=== PATIENT | male | born 1945 | race Caucasian/White ===

== ENCOUNTER 2020-06-21 11:11 | Observation (INO) | payer MEDICARE, MEDICAID, SELFPAY ==
[2020-06-21] VITALS (16 sets, daily range): BP systolic 82–126; BP diastolic 43–61; PULSE 53–105; RESP 15–24; TEMP 36.6–36.8; O2SAT 92–99; BMI 34.9
--- NOTE | 2020-06-21 11:25 | CT_ITS ---
WS: [id number] CT CERVICAL TRAUMA TECHNIQUE: Noncontrast CT of the cervical spine with coronal and sagittal reformatted images. CLINICAL INFORMATION: fall COMPARISON: None. DLP: 804.[address] scans at [facility] use at least one of these dose optimization techniques: automat ed exposure control; mA and/or kV adjustment per patient size (includes targeted exams where dose is matched to clinical indication); or iterative reconstruction. FINDINGS: Straightening of the normal cervical lordosis. Mild spondylitic changes. Normal craniocervical juncti on. Normal C1-C2 articulation. Dens is normal in appearance. Normal occipital condyles. No high-grade spinal canal narrowing. Normal C1 ring. No evidence of acute fracture or dislocation. Normal prevertebral soft tissues. Mastoids air cells are well aerated. CT/CT cervical spin wo con* [id number] IMPRESSION: No evidence of acute fracture or dislocation.
--- NOTE | 2020-06-21 11:25 | CT_ITS ---
WS: [id number] CT HEAD TECHNIQUE: Noncontrast CT of the head obtained from the skullbase to the vertex. CLINICAL INFORMATION: syncope, head injury COMPARISON: None. DLP: 778.[address] scans at [facility] use at least one of these dose optimization techniques: automat ed exposure control; mA and/or kV adjustment per patient size (includes targeted exams where dose is matched to clinical indication); or iterative reconstruction. FINDINGS: No evidence of intracranial hemorrhage or mass effect. Ventricular system and basal cisterns are dorsey nt. Mild small vessel changes with moderate parenchymal volume loss. 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 No extra-axial fluid collectio ns. No evidence of mass or mass effect. Paranasal sinuses and mastoid air cells are well aerated. .Normal visualized soft tissues. CT/CT head wo con* [id number] IMPRESSION: 1. No evidence of intracranial hemorrhage or mass effect. 2. Mild small vessel changes with moderate parenchymal volume loss. 3. 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 4. No acute intracranial findings.
--- NOTE | 2020-06-21 11:25 | CT_ITS ---
WS: [id number] CT CHEST, ABDOMEN, AND PELVIS TECHNIQUE: Noncontrast CT of the chest, abdomen, and pelvis with coronal and sagittal reformatted luana ges. CLINICAL INFORMATION: fall, left rib pain, left hip pain, left abdominal pain COMPARISON: None. DLP: 2131.[address] scans at [facility] use at least one of these dose optimization techniques: automat ed exposure control; mA and/or kV adjustment per patient size (includes targeted exams where dose is matched to clinical indication); or iterative reconstruction. CT CHEST: Moderate chronic emphysematous changes. Hazy ground glass infiltrates throughout the right lung. Left lung is well aerated. Nondisplaced left lateral seventh, Eighth, and ninth rib fractures. No evidence of mediastinal hematoma. No evidence of acute thoracic aortic injury. Aortic calcificatio n. CT ABDOMEN AND PELVIS: Noncontrast liver is normal. Normal GE junction. Noncontrast spleen is normal. Fatty atrophy of the p ancreas. Adrenal glands are normal. No hydronephrosis in either kidney. Prior right nephrectomy. Mult iple left renal cysts. Normal caliber abdominal aorta. Aortic calcification. Sigmoid diverticulosis. No evidence of acute diverticulitis. No evidence of small or large bowel obstruction. Tiny fat-containing umbilical hernia. No periaortic retroperitoneal lymphadenopathy. No inguinal lymphadenopathy. No free fluid in the pelvis. The bony p maddie and hips are normal in appearance. CT/CT chest abd pel wo con IMPRESSION: 1. Nondisplaced left lateral seventh,eighth and ninth rib fractures. 2. Patchy hazy infiltrates throughout the right lung peripherally. Left lung i s well aerated. No pneumothorax. 3. No evidence of acute aortic injury or mediastinal hematoma. 4. No evidence of acute solid organ injury in the abdomen or pelvis. No free f luid in the abdomen or pelvis. 5. Sigmoid diverticulosis. 6. Hips are normal in appearance. 7. No acute abdominal or pelvic findings. Notified Jamie Anand [place] [facility] [place] 06/21/2020 12:21 PM.
--- NOTE | 2020-06-21 11:25 | CT_ITS ---
WS: [id number] CT FACIAL BONES TECHNIQUE: Noncontrast facial bones with coronal and sagittal reformatted images. CLINICAL INFORMATION: fall COMPARISON: None. DLP: 754.[address] scans at [facility] use at least one of these dose optimization techniques: automat ed exposure control; mA and/or kV adjustment per patient size (includes targeted exams where dose is matched to clinical indication); or iterative reconstruction. FINDINGS: Paranasal sinuses are well aerated. Partially visualized mastoid air cells are well aerated. Lateral orbits are normal in appearance. Inferior orbits are normal in appearance. Normal lamina papyracea. A nterior nasal bones are normal. Normal sphenoid wings. Normal pterygoid plates. Normal mandible. No evidence of mandibular fracture dislocation. Mild mucosa l thickening right maxillary sinus. CT/CT facial bones wo con* [id number] IMPRESSION: 1. No acute facial fractures. 2. Normal right orbit 3. Mild mucosal thickening right maxillary sinus.
--- NOTE | 2020-06-21 11:28 | ECG_ITS ---
[facility] Test Date: 2020-06-21 Pat Name: Carter Cormier Department: Room: Gender: Male [employer] [facility]: : 1945 Requested By: Jamie Anand I Order Number: [id number] Zelalem MD: Brendon Ramirez M.D. Measurements Intervals Lyman Rate: 62 P: 58 IA: 197 QRS: -16 QRSD: 154 T: 225 QT: 465 QTc: 472 Interpretive Statements SINUS RHYTHM LEFT BUNDLE BRANCH BLOCK [120+ ms QRS DURATION, 80+ ms Q/S IN V1/V2, 85+ ms R IN I/aVL/V5/V6] No previous ECG available for comparison Electronically Signed On 06-21-2020 17:18:28 POND SUPERVISOR by Brendon Ramirez M.D. [id number]
--- NOTE | 2020-06-21 11:29 | ED_ITS ---
HPI - Syncope General: Chief Complaint: Syncope Stated Complaint: FALL/ WEAKNESS Time Seen by Provider: 06/21/20 11:12 Source: patient and EMS Mode of arrival: EMS Limitations: no limitations History of Present Illness: HPI narrative: Patient is a 75-year-old male with a history of hypertension, right nephrectomy for kidney cancer. He denies any prior history of NE, congestive heart failure, CVA. He states that 3 times last night he lost consciousness and fell. He does have abrasion in his right infraorbital region. Complains of pain on the left side of his body in his left lower chest wall, left side of the abdomen, and left hip. He complains of generalized weakness and called for an ambulance this morning. In the ambulance he was noted to be hypotensive and was brought here for evaluation MD complaint: loss of consciousness Onset (ago): hour(s) (12) Prodromal symptoms: none and headache Witnessed: No Context: getting out of bed Injuries sustained associated with event: face, abdomen and LLE Associated symptoms: Reports abdominal pain and headache(s); Deny chest pain, fever(s), lightheadedness, nausea, short of breath, vertigo or weakness Treatments prior to arrival: IV fluids Review of Systems General: Reports: 10 or more systems reviewed and unremarkable except in HPI and below Const: Denies: fever(s) Eyes: Denies: change in vision or blurry vision ENMT: Denies: throat pain, enlarged tonsils, odynophagia, hoarseness, mouth pain or swelling of lips/tongue Card: Denies: chest pain or lightheadedness Resp: Denies: dyspnea, productive cough or non-productive cough GI: Reports: abdominal pain; Denies: nausea : Denies: flank pain, dysuria, urinary frequency, urinary urgency or urinary hesitancy Musc: Denies: neck pain, back pain or extremity swelling Skin/Breast: Denies: rash, pruritus or erythema Neuro: Reports: headache(s); Denies: vertigo Endo: Denies: polyuria, polydipsia or tired all the time [facility] ED PFSH: Medical History (Updated 06/21/20 @ 19:28 by Jamie Anand MD, [facility] [place]) Asthma BPH (benign prostatic hyperplasia) CAD (coronary artery disease) GERD (gastroesophageal reflux disease) HTN (hypertension) Renal cell cancer Surgical History (Updated 06/21/20 @ 18:24 by Amilcar Andrea MD) History of nephrectomy Stented coronary artery Family History Other No significant family history Social History Smoking and tobacco status: former smoker Quit status (tobacco): has quit using tobacco Year quit tobacco: 1976 Alcohol intake: never Substance/Drug Use: never Lives independently: Yes Household members: none Housing: Other Details: Brother Johnnie Cormeir lives in the same apartment buildings. Marital status: Physical Exam Const: COMMON NORMALS: no acute distress, average body habitus, patient oriented x3, no limitations, healthy appearing, alert and well nourished HENMT: COMMON NORMALS: normocephalic and moist oral mucous membranes HEAD & SCALP: normocephalic FACE & SINUS: face symmetric and ecchymosis (Right infraorbital region) Eye: COMMON NORMALS: Equal, round and reactive pupils present, EOMs intact bilaterally, conjunctivae normal and no scleral icterus CONJUNCTIVA: Yes conjunctivae normal PUPIL: Yes Equal, round and reactive pupils present Neck/C-Spine: COMMON NORMALS: full ROM, supple, no meningeal signs, no JVD and No carotid bruits Chest: COMMONS NORMALS: normal inspection of the chest CHEST: Yes tenderness (Left lower chest wall) Resp: COMMON NORMALS: normal respiratory effort, No retractions, No use of accessory muscles, clear to auscultation bilaterally and percussion normal AUSCULTATION: clear to auscultation bilaterally PERCUSSION: percussion normal Cardio: COMMON NORMALS: no JVD, regular rate, regular rhythm, S1 normal heart sound present, S2 normal heart sound present, No gallops present (Cardio), No clicks present (Cardio), No murmurs present (Cardio), No rub (Cardio) and Peripheral pulses 2+ throughout RATE: regular rate RHYTHM: regular rhythm HEART SOUNDS: S1 normal heart sound present and S2 normal heart sound present PERIPHERAL PULSES: Peripheral pulses 2+ throughout GI: COMMON NORMALS: Normal to inspection, nondistended, normoactive bowel sounds present, Soft to palpation, No hepatosplenomegaly present, no masses and no bruits PALPATION: Yes Soft to palpation, Yes Tenderness to palpation present (GI) Details: LLQ and LUQ, No Guarding due to palpation present (GI), No Rigid due to palpation and Yes No hepatosplenomegaly present Extremity: COMMON NORMALS: normal to inspection, full ROM, capillary refill normal, no calf tenderness and no pedal edema LEFT LOWER EXTREMITY: Yes hip joint Left hip: Yes palpation (tender to palpation) Neuro: COMMON NORMALS: patient oriented x3 SENSORIUM/ORIENTATION: Yes alert MENINGEAL SIGNS: Yes no meningeal signs Skin: COMMON NORMALS: no rashes or lesions noted, no wounds, turgor normal, no jaundice, no petechiae and no mottling GENERAL SKIN EXAM: no rashes or lesions noted and turgor normal Course ED course: 75 year old male who presented to the ED after 3 syncopal episodes last night. Evaluation showed he sustained multiple rib fractures. He was orthostatic on initial evaluation and after 2 liters of normal saline was still orthostatic. Labs showed elevated troponin but a flat 2 hour delta. He has had a nephrectomy and his creatinine was elevated. Consultations: Consultation #1: Discussed the patient with Dr. Andrea, hospitalist and he kindly accepted the patient to his service. Time: 17:07 Vital Signs: Vital signs: Vital Signs Temperature 98.3 F 06/21/20 11:18 Pulse Rate 68 06/21/20 18:15 Respiratory Rate 18 06/21/20 18:15 Blood Pressure 117/56 06/21/20 18:15 Pulse Oximetry 97 06/21/20 18:15 MDM - Syncope MDM Narrative: Medical decision making narrative: Patient with 3 syncopal episodes last night. He sustained rib fractures, and was orthostatic, which did not resolve following fluid hydration. He is admitted for further evaluation and management. Lab Data: Labs: Lab Results 06/21/20 06/21/20 06/21/20 Range/Units 12:37 12:37 12:43 WBC 7.3 (4.0-10.0) 10^3/ uL RBC 4.16 (4.1-5.3) 10^6/u L Hgb 13.1 (11.7-16.6) g/dL Hct 39.0 L (42.0-52.0) % MCV 93.8 (80-94) fL MCH 31.5 (28.0-34.0) pg MCHC 33.6 (30.0-36.0) g/dL RDW 12.6 (12.1-15.1) % Plt Count 145 (130-400) 10^3/c mm MPV 9.4 (7.4-10.4) fL Neut % (Auto) 77.6 % Lymph % (Auto) 11.5 % Darke % (Auto) 8.8 % Eos % (Auto) 1.4 % Baso % (Auto) 0.3 % Neut # (Auto) 5.67 (1.8-7.7) 10^3/u L Lymph # (Auto) 0.8 (0.8-4.8) 10^3/u L Darke # (Auto) 0.6 (0.2-0.9) 10^3/u L Eos # (Auto) 0.1 (0.0-0.8) 10^3/u L Baso # (Auto) 0.0 (0.0-0.1) 10^3/u L Nucleated RBC % (a uto) 0 % Nucleated RBCs # 0.0 /100WBC PT (12.1-14.9) SECO NDS INR (0.8-1.2) Sodium (136-145) mmol/L Potassium (3.5-5.1) mmol/L Chloride (98-107) mmol/L Carbon Dioxide (22-29) mmol/L Anion Gap (5-19) BUN (8-23) mg/dL Creatinine (0.7-1.2) mg/dL GFR Calculation Glucose (65-115) mg/dL Calculated Osmolal ity (285-295) mOsm/k g Lactate (0.5-2.2) mmol/L Calcium (8.5-10.5) mg/dL Total Bilirubin (0.15-1.2) mg/dL AST (0-40) U/L ALT (0-41) U/L Alkaline Phosphata se (40-130) IU/L Troponin T Baselin e (0-15) ng/L Troponin T 120 Min [place] Delta Troponin T C-Reactive Protein (0.0-4.9) mg/L NT-Pro-B Natriuret Pep (0-450) pg/mL Total Protein (6.6-8.7) g/dL Albumin (3.5-5.2) g/dL Globulin (1.3-4.6) g/dL Procalcitonin (0-0.5) ng/mL Urine Color Dark yellow (Yellow) Urine Appearance Cloudy (CLEAR) Urine pH 5 (5-7) Ur Specific Gravit y 1.025 (1.005-1.030) Urine Protein Trace (Negative) Urine Glucose (UA) Norm (Normal) Urine Ketones Negative (Negative) Urine Blood Neg (Negative) Urine Nitrate Negative (Negative) Urine Bilirubin 1+ H (Negative) Urine Urobilinogen 4 H (Negative) mg/dL Ur Leukocyte Rossi ase Negative (Negative) Urine RBC None (0-2) /hpf Urine WBC 0-4 H (0-5) /hpf Ur Squamous Epith Cells 25-40 H (0-5) /hpf Amorphous Sediment Not Reportable Urine Bacteria 2+ H (NONE) /hpf Urine Opiates Scre en Negative (Negative) ng/mL Ur Barbiturates Sc reen Negative (Negative) ng/mL Ur Phencyclidine S crn Negative (Negative) ng/mL Ur Amphetamines Sc reen Negative (Negative) ng/mL U Benzodiazepines Scrn Negative (Negative) ng/mL Urine Cocaine Scre en Negative (Negative) ng/mL U Marijuana (THC) Screen Negative (Negative) ng/mL 06/21/20 06/21/20 06/21/20 Range/Units 12:43 12:43 12:43 WBC (4.0-10.0) 10^3/ uL RBC (4.1-5.3) 10^6/u L Hgb (11.7-16.6) g/dL Hct (42.0-52.0) % MCV (80-94) fL MCH (28.0-34.0) pg MCHC (30.0-36.0) g/dL RDW (12.1-15.1) % Plt Count (130-400) 10^3/c mm MPV (7.4-10.4) fL Neut % (Auto) % Lymph % (Auto) % Darke % (Auto) % Eos % (Auto) % Baso % (Auto) % Neut # (Auto) (1.8-7.7) 10^3/u L Lymph # (Auto) (0.8-4.8) 10^3/u L Darke # (Auto) (0.2-0.9) 10^3/u L Eos # (Auto) (0.0-0.8) 10^3/u L Baso # (Auto) (0.0-0.1) 10^3/u L Nucleated RBC % (a uto) % Nucleated RBCs # /100WBC PT 14.60 (12.1-14.9) SECO NDS INR 1.10 (0.8-1.2) Sodium 139 (136-145) mmol/L Potassium 3.1 L (3.5-5.1) mmol/L Chloride 98 (98-107) mmol/L Carbon Dioxide 24 (22-29) mmol/L Anion Gap 20.1 H (5-19) BUN 36 H (8-23) mg/dL Creatinine 2.5 H (0.7-1.2) mg/dL GFR Calculation Not Reportable Glucose 154 H (65-115) mg/dL Calculated Osmolal ity 299 H (285-295) mOsm/k g Lactate 2.3 H (0.5-2.2) mmol/L Calcium 9.0 (8.5-10.5) mg/dL Total Bilirubin 0.9 (0.15-1.2) mg/dL AST 14 (0-40) U/L ALT 9 (0-41) U/L Alkaline Phosphata se 99 (40-130) IU/L Troponin T Baselin e (0-15) ng/L Troponin T 120 Min [place] Delta Troponin T C-Reactive Protein 35.0 H (0.0-4.9) mg/L NT-Pro-B Natriuret Pep 211 (0-450) pg/mL Total Protein 5.7 L (6.6-8.7) g/dL Albumin 3.2 L (3.5-5.2) g/dL Globulin 2.5 (1.3-4.6) g/dL Procalcitonin 0.32 (0-0.5) ng/mL Urine Color (Yellow) Urine Appearance (CLEAR) Urine pH (5-7) Ur Specific Gravit y (1.005-1.030) Urine Protein (Negative) Urine Glucose (UA) (Normal) Urine Ketones (Negative) Urine Blood (Negative) Urine Nitrate (Negative) Urine Bilirubin (Negative) Urine Urobilinogen (Negative) mg/dL Ur Leukocyte Rossi ase (Negative) Urine RBC (0-2) /hpf Urine WBC (0-5) /hpf Ur Squamous Epith Cells (0-5) /hpf Amorphous Sediment Urine Bacteria (NONE) /hpf Urine Opiates Scre en (Negative) ng/mL Ur Barbiturates Sc reen (Negative) ng/mL Ur Phencyclidine S crn (Negative) ng/mL Ur Amphetamines Sc reen (Negative) ng/mL U Benzodiazepines Scrn (Negative) ng/mL Urine Cocaine Scre en (Negative) ng/mL U Marijuana (THC) Screen (Negative) ng/mL 06/21/20 06/21/20 06/21/20 Range/Units 12:43 15:28 16:15 WBC (4.0-10.0) 10^3/ uL RBC (4.1-5.3) 10^6/u L Hgb (11.7-16.6) g/dL Hct (42.0-52.0) % MCV (80-94) fL MCH (28.0-34.0) pg MCHC (30.0-36.0) g/dL RDW (12.1-15.1) % Plt Count (130-400) 10^3/c mm MPV (7.4-10.4) fL Neut % (Auto) % Lymph % (Auto) % Darke % (Auto) % Eos % (Auto) % Baso % (Auto) % Neut # (Auto) (1.8-7.7) 10^3/u L Lymph # (Auto) (0.8-4.8) 10^3/u L Darke # (Auto) (0.2-0.9) 10^3/u L Eos # (Auto) (0.0-0.8) 10^3/u L Baso # (Auto) (0.0-0.1) 10^3/u L Nucleated RBC % (a uto) % Nucleated RBCs # /100WBC PT (12.1-14.9) SECO NDS INR (0.8-1.2) Sodium (136-145) mmol/L Potassium (3.5-5.1) mmol/L Chloride (98-107) mmol/L Carbon Dioxide (22-29) mmol/L Anion Gap (5-19) BUN (8-23) mg/dL Creatinine (0.7-1.2) mg/dL GFR Calculation Glucose (65-115) mg/dL Calculated Osmolal ity (285-295) mOsm/k g Lactate (0.5-2.2) mmol/L Calcium (8.5-10.5) mg/dL Total Bilirubin (0.15-1.2) mg/dL AST (0-40) U/L ALT (0-41) U/L Alkaline Phosphata se (40-130) IU/L Troponin T Baselin e 45 H (0-15) ng/L Troponin T 120 Min [place] Cancelled 43.86 H Delta Troponin T Cancelled -1.14 L C-Reactive Protein (0.0-4.9) mg/L NT-Pro-B Natriuret Pep (0-450) pg/mL Total Protein (6.6-8.7) g/dL Albumin (3.5-5.2) g/dL Globulin (1.3-4.6) g/dL Procalcitonin (0-0.5) ng/mL Urine Color (Yellow) Urine Appearance (CLEAR) Urine pH (5-7) Ur Specific Gravit y (1.005-1.030) Urine Protein (Negative) Urine Glucose (UA) (Normal) Urine Ketones (Negative) Urine Blood (Negative) Urine Nitrate (Negative) Urine Bilirubin (Negative) Urine Urobilinogen (Negative) mg/dL Ur Leukocyte Rossi ase (Negative) Urine RBC (0-2) /hpf Urine WBC (0-5) /hpf Ur Squamous Epith Cells (0-5) /hpf Amorphous Sediment Urine Bacteria (NONE) /hpf Urine Opiates Scre en (Negative) ng/mL Ur Barbiturates Sc reen (Negative) ng/mL Ur Phencyclidine S crn (Negative) ng/mL Ur Amphetamines Sc reen (Negative) ng/mL U Benzodiazepines Scrn (Negative) ng/mL Urine Cocaine Scre en (Negative) ng/mL U Marijuana (THC) Screen (Negative) ng/mL Imaging Data^: Other CT: Radiologist's impression: [address] [place] [address] CT Scan Report Signed Patient: Carter Cormier #: [id number] : 1945cct#:[id number] Age/Sex: 75 / MADM Date: 06/21/20 Loc: ERRoom/Bed: Attending Dr: Ordering Provider/Ordering MD: Jamie Anand MD, [facility] [place] Date of Service: 06/21/20 Procedure(s): CT cervical spin wo con* [id number] Accession Number(s): [id number] Report Number: [id number] WS: [id number] CT CERVICAL TRAUMA TECHNIQUE: Noncontrast CT of the cervical spine with coronal and sagittal reformatted images. CLINICAL INFORMATION: fall COMPARISON: None. DLP: 804.[address] scans at [facility] use at least one of these dose optimization techniques: automated exposure control; mA and/or kV adjustment per patient size (includes targeted exams where dose is matched to clinical indication); or iterative reconstruction. FINDINGS: Straightening of the normal cervical lordosis. Mild spondylitic changes. Normal craniocervical junction. Normal C1-C2 articulation. Dens is normal in appearance. Normal occipital condyles. No high-grade spinal canal narrowing. Normal C1 ring. No evidence of acute fracture or dislocation. Normal prevertebral soft tissues. Mastoids air cells are well aerated. CT/CT cervical spin wo con* [id number] IMPRESSION: No evidence of acute fracture or dislocation. Dictated By:Garret Cooper MD Signed By:Garret Cooper MDSigned Date/Time:06/21/20 1208 DD/ [address] [place] [address] CT Scan Report Signed Patient: Carter Cormier #: [id number] : 1945cct#:[id number] Age/Sex: 75 / MADM Date: 06/21/20 Loc: ERRoom/Bed: Attending Dr: Ordering Provider/Ordering MD: Jamie Anand MD, [facility] [place] Date of Service: 06/21/20 Procedure(s): CT facial bones wo con* [id number] Accession Number(s): [id number] Report Number: [id number] WS: [id number] CT FACIAL BONES TECHNIQUE: Noncontrast facial bones with coronal and sagittal reformatted images. CLINICAL INFORMATION: fall COMPARISON: None. DLP: 754.[address] scans at [facility] use at least one of these dose optimization techniques: automated exposure control; mA and/or kV adjustment per patient size (includes targeted exams where dose is matched to clinical indication); or iterative reconstruction. FINDINGS: Paranasal sinuses are well aerated. Partially visualized mastoid air cells are well aerated. Lateral orbits are normal in appearance. Inferior orbits are normal in appearance. Normal lamina papyracea. Anterior nasal bones are normal. Normal sphenoid wings. Normal pterygoid plates. Normal mandible. No evidence of mandibular fracture dislocation. Mild mucosal thickening right maxillary sinus. CT/CT facial bones wo con* [id number] IMPRESSION: 1. No acute facial fractures. 2. Normal right orbit 3. Mild mucosal thickening right maxillary sinus. Dictated By:Garret Cooper MD Signed By:Garret Cooper MDSigned Date/Time:06/21/20 1205 DD/ 1200 CT Chest: Radiologist's impression: [address] [address] [address] Scan Report Signed Patient: Carter Cormier #: [id number] : 3Acct#:[id number] Age/Sex: 75 / MADM Date: 06/21/20 Loc: ERRoom/Bed: Attending Dr: Ordering Provider/Ordering MD: Jamie Anand MD, [facility] [place] Date of Service: 06/21/20 Procedure(s): CT chest abd pel wo con Accession Number(s): [id number] Report Number: [id number] WS: [id number] CT CHEST, ABDOMEN, AND PELVIS TECHNIQUE: Noncontrast CT of the chest, abdomen, and pelvis with coronal and sagittal reformatted images. CLINICAL INFORMATION: fall, left rib pain, left hip pain, left abdominal pain COMPARISON: None. DLP: 2131.[address] scans at [facility] use at least one of these dose optimization techniques: automated exposure control; mA and/or kV adjustment per patient size (includes targeted exams where dose is matched to clinical indication); or iterative reconstruction. CT CHEST: Moderate chronic emphysematous changes. Hazy ground glass infiltrates throughout the right lung. Left lung is well aerated. Nondisplaced left lateral seventh, Eighth, and ninth rib fractures. No evidence of mediastinal hematoma. No evidence of acute thoracic aortic injury. Aortic calcification. CT ABDOMEN AND PELVIS: Noncontrast liver is normal. Normal GE junction. Noncontrast spleen is normal. Fatty atrophy of the pancreas. Adrenal glands are normal. No hydronephrosis in either kidney. Prior right nephrectomy. Multiple left renal cysts. Normal caliber abdominal aorta. Aortic calcification. Sigmoid diverticulosis. No evidence of acute diverticulitis. No evidence of small or large bowel obstruction. Tiny fat-containing umbilical hernia. No periaortic retroperitoneal lymphadenopathy. No inguinal lymphadenopathy. No free fluid in the pelvis. The bony pelvis and hips are normal in appearance. CT/CT chest abd pel wo con IMPRESSION: 1. Nondisplaced left lateral seventh,eighth and ninth rib fractures. 2. Patchy hazy infiltrates throughout the right lung peripherally. Left lung is well aerated. No pneumothorax. 3. No evidence of acute aortic injury or mediastinal hematoma. 4. No evidence of acute solid organ injury in the abdomen or pelvis. No free fluid in the abdomen or pelvis. 5. Sigmoid diverticulosis. 6. Hips are normal in appearance. 7. No acute abdominal or pelvic findings. Notified Jamie Anand MD [facility] [place] at 06/21/2020 12:21 PM. Dictated By:Garret Cooper MD Signed By:Garret Cooper MDSigned Date/Time:06/21/20 1222 DD/ 1208 CT Head: Radiologist's impression: [address] [place] [address] CT Scan Report Signed Patient: Carter Comriert #: [id number] : 3Acct#:[id number] Age/Sex: 75 / MADM Date: 06/21/20 Loc: ERRoom/Bed: Attending Dr: Ordering Provider/Ordering MD: Jamie Anand MD, [facility] [place] Date of Service: 06/21/20 Procedure(s): CT head wo con* [id number] Accession Number(s): [id number] Report Number: [id number] WS: [id number] CT HEAD TECHNIQUE: Noncontrast CT of the head obtained from the skullbase to the vertex. CLINICAL INFORMATION: syncope, head injury COMPARISON: None. DLP: 778.[address] scans at [facility] use at least one of these dose optimization techniques: automated exposure control; mA and/or kV adjustment per patient size (includes targeted exams where dose is matched to clinical indication); or iterative reconstruction. FINDINGS: No evidence of intracranial hemorrhage or mass effect. Ventricular system and basal cisterns are patent. Mild small vessel changes with moderate parenchymal volume loss. 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 No extra-axial fluid collections. No evidence of mass or mass effect. Paranasal sinuses and mastoid air cells are well aerated. .Normal visualized soft tissues. CT/CT head wo con* [id number] IMPRESSION: 1. No evidence of intracranial hemorrhage or mass effect. 2. Mild small vessel changes with moderate parenchymal volume loss. 3. Chronic encephalomalacia right parasagittal frontal lobe likely due to prior infarct or trauma. 4. No acute intracranial findings. Dictated By:Garret Cooper MD Signed By:Garret Cooper MDSigned Date/Time:06/21/20 1200 DD/ 1152 EKG Data^: EKG 1: Attestation: I personally reviewed and interpreted this EKG as follows: EKG interpretation date: 06/21/20 EKG interpretation time: 11:21 Prior EKG tracings: not available for review Interpretation: Sinus rhythm. Heart rate 62 bpm. Left bundle branch block. No ST changes. EKG 2: Attestation: I personally reviewed and interpreted this EKG as follows: EKG interpretation date: 06/21/20 EKG interpretation time: 13:49 Prior EKG tracings: available for review Interpretation: sinus bradycardia HR [address] changes EKG 3: Attestation: I personally reviewed and interpreted this EKG as follows: EKG interpretation date: 06/21/20 EKG interpretation time: 17:37 Prior EKG tracings: available for review Interpretation: sinus bradycardia HR [address] changes Discharge Plan Discharge Patient Disposition: Admitted As Inpatient Admit Provider: Amilcar Andrea Clinical Impression: Orthostatic hypotension, Syncope, Rib fractures, MAXIMILIANO (acute kidney injury), Troponin level elevated Condition: Stable Coding Level of Care Code ED Tool Turret Lathe Set Up Operator for Chg Fwd Exam Comprehensive
--- NOTE | 2020-06-21 12:28 | PC.NURSE ---
Attempted 2x to draw blood from venipuncture, unsuccessful. Unable to draw from pt IV. Pt attempting to give UA, orthos done.
--- NOTE | 2020-06-21 12:40 | PC.NURSE ---
Lab at bedside to draw blood
[2020-06-21 12:51] LABS: Blood Urine Neg (Negative); Glucose Urine UA Norm (Normal); Ketones Urine Negative (Negative); Nitrate Urine Negative (Negative); Protein Urine Trace (Negative); Specific Gravity, Urine 1.025 (1.005-1.030); Urine Appearance Cloudy (CLEAR); Urine Color Dark Yellow (Yellow); pH Urine 5 (5-7)
[2020-06-21 12:52] LABS: Add Urine Microscopic? YES; Bilirubin Urine 1+ (Negative); Leukocyte Esterase Urine Negative (Negative); Urobilinogen Urine 4 mg/dL (Negative)
[2020-06-21 12:53] LABS: Basophils % 0.3 %; Eosinophils # 0.1 10^3/uL (0.0-0.8); Eosinophils % 1.4 %; Hemoglobin 13.1 g/dL (11.7-16.6); Lymphocytes # 0.8 10^3/uL (0.8-4.8); Lymphocytes % 11.5 %; Mean Corpuscular HGB Conc 33.6 g/dL (30.0-36.0); Mean Corpuscular Hemoglobin 31.5 pg (28.0-34.0); Mean Corpuscular Volume 93.8 fL (80-94); Mean Platelet Volume 9.4 fL (7.4-10.4); Monocytes # 0.6 10^3/uL (0.2-0.9); Monocytes % 8.8 %; Neutrophils # 5.67 10^3/uL (1.8-7.7); Neutrophils % 77.6 %; Nucleated Red Blood Cells % 0 %; Platelet Count 145 10^3/cmm (130-400); Red Blood Count 4.16 10^6/uL (4.1-5.3); Red Cell Distribution Width 12.6 % (12.1-15.1); White Blood Count 7.3 10^3/uL (4.0-10.0)
[2020-06-21 12:59] LABS: Add Urine Culture? No; Bacteria Urine 2+ /hpf; Squamous Epithelial Cell Urine 25-40 /hpf (0-5); WBC Urine 0-4 /hpf (0-5)
[2020-06-21 13:01] LABS: Amphetamines Screen Urine Negative (Negative); Barbiturates Screen Urine Negative (Negative); Benzodiazepines Screen Urine Negative (Negative); Cocaine Screen Urine Negative (Negative); Opiate Screen Urine Negative (Negative); PCP Screen Urine Negative (Negative); THC Screen Urine Negative (Negative)
[2020-06-21 13:06] LABS: Lactate (Lactic Acid level) 2.3 mmol/L (0.5-2.2)
[2020-06-21 13:09] LABS: Troponin(5th) Baseline 45 ng/L (0-15)
[2020-06-21 13:17] LABS: NT Pro B Type Natriuretic Pept 211 pg/mL (0-450); Procalcitonin 0.32 ng/mL (0-0.5)
--- NOTE | 2020-06-21 13:28 | ECG_ITS ---
[facility] Test Date: 2020-06-21 Pat Name: Carter Cormier Department: Room: Gender: Male Spotter: : 1945 Requested By: Jamie Anand I Order Number: [id number] Zelalem MD: Brendon Ramirez M.D. Measurements Intervals [place] Rate: 57 P: 44 ID: [id number] QRS: -29 QRSD: 110 T: -15 QT: 415 QTc: 407 Interpretive Statements SINUS BRADYCARDIA BORDERLINE LEFT AXIS DEVIATION [QRS AXIS < -20] MODERATE T-WAVE ABNORMALITY, CONSIDER LATERAL ISCHEMIA [-0.1+ mV T WAVE IN I/aVL/V5/V6] Compared to ECG 06/21/2020 11:21:36 T-wave abnormality now present Possible ischemia now present Sinus rhythm no longer present Left bundle-branch block no longer present Electronically Signed On 06-21-2020 17:31:20 TAPER MACHINE by Brendon Ramirez M.D. [id number] f
[2020-06-21 13:29] LABS: Alanine Aminotransferase 9 U/L (0-41); Albumin Level 3.2 g/dL (3.5-5.2); Alkaline Phosphatase 99 IU/L (40-130); Anion Gap 20.1 (5-19); Aspartate Amino Transferase 14 U/L (0-40); Blood Urea Nitrogen 36 mg/dL (8-23); Carbon Dioxide 24 mmol/L (22-29); Chloride 98 mmol/L (98-107); Globulin 2.5 g/dL (1.3-4.6); Glucose 154 mg/dL (65-115); Osmolality Calculated 299 mOsm/kg (285-295); Potassium 3.1 mmol/L (3.5-5.1); Sodium 139 mmol/L (136-145); Total Bilirubin 0.9 mg/dL (0.15-1.2); Total Protein 5.7 g/dL (6.6-8.7)
[2020-06-21] MEDS: sodium chloride 0.9% 1,000 ML 999 ML IV (14:00)
[2020-06-21] MEDS: potassium chloride oral liq 20 mEq/15 mL UDC 40 MEQ PO (14:34)
[2020-06-21 16:45] LABS: Troponin 5 2HR 43.86 ng/L (0-15); Troponin 5 2HR Delta -1.14 ABS# (0-10)
--- NOTE | 2020-06-21 17:28 | ECG_ITS ---
[facility] Test Date: 2020-06-21 Pat Name: Carter Cormier Department: Room: 279 Gender: Male Culture Room Worker: : 1945 Requested By: Jamie Anand I Order Number: [id number] Zelalem MD: Brendon Ramirez M.D. Measurements Intervals [place] Rate: 54 P: 19 [place]: 192 QRS: -21 QRSD: 106 T: 148 QT: 423 QTc: 402 Interpretive Statements SINUS BRADYCARDIA MODERATE INTRAVENTRICULAR CONDUCTION DELAY [105+ ms QRS DURATION, 80+ ms Q/S IN V1/V2, NO Q AND 60+ ms R IN I/aVL/V5/V6] NONSPECIFIC T-WAVE ABNORMALITY Compared to ECG 06/21/2020 13:49:16 Intraventricular conduction delay now present Possible ischemia no longer present T-wave abnormality still present Electronically Signed On 06-21-2020 18:29:27 EXPLOSIVE ORDNANCE MANAGER by Brendon Ramirez M.D. [id number]
--- NOTE | 2020-06-21 18:18 | P.HP_ITS ---
Providers/Chief Complaint Admitting Physician: Amilcar Andrea Primary Care Provider: Pankaj Vang MD Chief Complaint: FALL/ WEAKNESS History of Present Illness Very pleasant 75-year-old gentleman came into ER today for evaluation due to lightheadedness, yesterday suffering a fall after standing up from a chair, woke up on the floor. He is not a very good historian, does provide piecemeal history and answer questions, and history history is pieced with diabetes. Some of the history was obtained from ER physician. I was not able to reach his brother who was not with him in ER at the time of my evaluation. He reportedly was helped up by his brother Johnnie Cormier who lives in the same apartment building since the patient. He reports he has had lightheadedness on standing up for several months and states has discussed it previously with his primary care provider, but is not sure what they thought of it. He denies any vertigo, or sensation like room is spinning around him or up and down. He states he feels lightheaded when he stands, and most of the time he knows to sit back down, however, sometimes does not make so in time. He reports that several months ago he had a bad fall in his bathtub. In ER he is found to be significantly orthostatic with blood pressure 126/56 laying down, and down to 89/50 on standing. He does not appear to have signs of acute infection. He is afebrile, no leukocytosis. His UA sample is not very good, but not indicative of UTI. Urine drug screen is unremarkable. Head, face, C-spine CT without acute fractures. 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 He is noted to have fractures of ribs on the left side 7-9. Incidentally noted patchy hazy infiltrates through the right lung peripherally, left lung well aerated, no pneumothorax. He has had no respiratory complaints, no cough, no shortness of breath. In ER he received a bolus of normal saline 1000 mL, potassium with mild hypokalemia 3.1 was replaced in ER with 40 mEq. He is noted to have creatinine elevated at 2.5. Baseline is unknown. He has history of renal cell carcinoma with excision of right kidney in 1970s. He does report that recently his appetite has been poor, and he has not been eating well. He is on furosemide, although denies history of congestive heart failure. Does report history of CAD and prior stenting. Troponin is mildly elevated in ER 45-43.86. He does not complain of recurrent or persistent chest pain or pressure. EKG with sinus bradycardia 57 bpm, moderate T wave abnormality. Review of Systems Const: Reports: change in appetite; Denies: fever(s), chills, body aches or malaise Eyes: Denies: change in vision or eye redness ENMT: Denies: throat pain, oral sores or ear or mastoid pain Card: Reports: lightheadedness and syncope; Denies: chest pain, edema, pre-syncope or dyspnea on exertion Resp: Denies: dyspnea, productive cough, change in phlegm color or hemoptysis GI: Denies: abdominal pain, nausea, vomiting, diarrhea, constipation, hematochezia or melena : Denies: flank pain, difficulty urinating, urinary frequency or hematuria Musc: Denies: back pain, joint swelling or joint redness Skin/Breast: Denies: rash, sores or new lesions Neuro: Denies: headache(s), numbness in extremities, weakness in extremities, dizziness, confusion or seizure-like activity Endo: Denies: polyuria or polydipsia Timothy/Lymph: Denies: easy bleeding or purpura All/Imm: Denies: urticaria, throat swelling or tongue swelling Medications/Allergies Home Medications Medication Instructions Recorded Confirmed Last Taken Type albuterol sulfate [Ventolin HFA] 2 puff INHALATION Q4H PRN 06/21/20 06/21/20 Unknown History aspirin 325 mg PO DAILY@06/21/20 06/21/20 06/21/20 History carvedilol 25 mg PO BID@,06/21/20 06/21/20 06/21/20 History clonidine 0.1 mg TRANSDERMAL Q7D 06/21/20 06/21/20 Unknown History clopidogrel 75 mg PO DAILY@06/21/20 06/21/20 06/21/20 History cranberry 500 mg PO DAILY@07 06/21/20 06/21/20 06/21/20 History finasteride 5 mg PO DAILY@06/21/20 06/21/20 06/21/20 History fluticasone propion-salmeterol 1 inh INHALATION BID PRN 06/21/20 06/21/20 Unknown History [Advair Diskus] fluticasone propionate 1 spray INTRANASAL DAILY PRN 06/21/20 06/21/20 Unknown History furosemide 20 mg PO DAILY@07 06/21/20 06/21/20 06/21/20 History guaifenesin [Mucinex] 600 mg PO BID@06/21/20 06/21/20 06/21/20 History levetiracetam 1,000 mg PO BID@06/21/20 06/21/20 06/21/20 History nitroglycerin [Nitrostat] 0.4 mg SUBLINGUAL Q5M PRN 06/21/20 06/21/20 Unknown History ondansetron HCl 4 mg PO Q6H PRN 06/21/20 06/21/20 Unknown History pantoprazole 40 mg PO DAILY@07 06/21/20 06/21/20 06/21/20 History polyethylene glycol 3350 [Miralax] 17 g PO DAILY PRN 06/21/20 06/21/20 Unknown History prednisone See Rx Instructions .ROUTE .COMPLEX 06/21/20 06/21/20 Unknown History roflumilast [Daliresp] 500 mcg PO DAILY@07 06/21/20 06/21/20 06/21/20 History tamsulosin 0.4 mg PO DAILY@07 06/21/20 06/21/20 Unknown History valsartan 160 mg PO DAILY@07 06/21/20 06/21/20 06/21/20 History Allergies Allergy/AdvReac Type Severity Reaction Status Date / Time acetaminophen [From Percocet] Allergy Unknown Verified 06/21/20 13:47 oxycodone [From Percocet] Allergy Unknown Verified 06/21/20 13:47 PFSH Acute PFSH: Medical History (Updated 06/21/20 @ 18:24 by Amilcar Andrea MD) Asthma BPH (benign prostatic hyperplasia) CAD (coronary artery disease) GERD (gastroesophageal reflux disease) HTN (hypertension) Renal cell cancer Surgical History (Updated 06/21/20 @ 18:24 by Amilcar Andrea MD) History of nephrectomy Stented coronary artery Family History Other No significant family history Social History Smoking and tobacco status: former smoker Quit status (tobacco): has quit using tobacco Year quit tobacco: 1976 Alcohol intake: never Substance/Drug Use: never Lives independently: Yes Household members: none Housing: Other Details: Brother Johnnie Cormier lives in the same apartment buildings. Marital status: Vitals/I&O/Wt Last Vital Signs Temp 98.3 F 06/21/20 11:18 Pulse 68 06/21/20 18:15 Resp 18 06/21/20 18:15 BP 117/56 06/21/20 18:15 Pulse Ox 97 06/21/20 18:15 Weight last 48 hrs Weight 104.326 kg Physical Exam Const: COMMON NORMALS: no acute distress, patient oriented x3 and alert ORIENTATION/CONSCIOUSNESS: Yes awake OTHER: Hard of hearing elderly gentleman. HENMT: COMMON NORMALS: oropharynx normal (Dry oral mucosa. Dentures.) Neck/C-Spine: COMMON NORMALS: no JVD Resp: COMMON NORMALS: normal respiratory effort and clear to auscultation bilaterally AUSCULTATION: clear to auscultation bilaterally Cardio: COMMON NORMALS: no JVD, regular rhythm, S1 normal heart sound present, S2 normal heart sound present and No murmurs present (Cardio) RHYTHM: regular rhythm HEART SOUNDS: S1 normal heart sound present and S2 normal heart sound present GI: COMMON NORMALS: Normal to inspection, nondistended, normoactive bowel sounds present, Soft to palpation and non-tender PALPATION: Yes Soft to palpation Extremity: COMMON NORMALS: no joint enlargement and no pedal edema Neuro: COMMON NORMALS: patient oriented x3 and moves all extremities Skin: COMMON NORMALS: no rashes or lesions noted GENERAL SKIN EXAM: no rashes or lesions noted, dry skin and ecchymosis Data : 06/21/20 12:43 06/21/20 12:43 A&P Assessment and plan (1) Syncope: Syncopal event after orthostatic hypotension most likely. He reports lightheadedness on standing up for several months. Appears to have fractures of ribs 7-9 on the left side, although he reports he thinks that that may be actually from a previous fall when he fell down in the bathtub. In ER noted quite significantly orthostatic. Received 1 L of fluids, but still orthostatic. Creatinine is 2.5. Unclear whether this is MAXIMILIANO versus CKD. He is on a number of medications at home with may cause contribute. For now will hold his carvedilol, clonidine, Lasix, valsartan. He denies history of CHF, though does report history of CAD with stenting. Will assess TTE. Noted minimal bradycardia heart rates 50s-60s. Hold carvedilol. Monitor on telemetry. He also takes finasteride and tamsulosin presumably for BPH. We will continue these for now. Status: Acute (2) Orthostatic hypotension: As above. Reassess orthostatic blood pressures in the morning. Status: Acute (3) Rib fractures: Incentive spirometry. Symptomatic management. Status: Acute (4) Opacity of lung on imaging study: Patchy hazy infiltrates throughout the right lung peripherally. Unclear etiology of this. This may be contusion due to fall, although his oxygenation is good. He does not have signs of pneumonia. Does not complain any shortness of breath. No chest pain. He is afebrile, does not have any symptoms of COVID- 19. Will monitor for now, with supportive care. Status: Acute (5) MAXIMILIANO (acute kidney injury): Acute kidney injury versus chronic kidney disease. Creatinine is 2.5. Unclear whether this is chronic. Has history of nephrectomy due to renal cell carcinoma in the 1970s per patient. He is quite significantly orthostatic, and is on a number of medications that could contribute to acute kidney injury. For we will hold furosemide, valsartan. Received fluid challenge bolus of 1 L in ER. We will obtain kidney ultrasound. Status: Acute (6) Troponin level elevated: Mildly elevated troponin, 45-43.86. Follow-up complete troponin EKG series. Assess TTE. Monitor on telemetry. Continue aspirin, hold beta sandra. He is not on statin. Status: Acute Additional A&P Information Hypokalemia: Replaced in ER. Recheck level. Asthma: Not in exacerbation Seizure disorder?: He is on Keppra, but denies history of seizures. Cannot confirm this but there is no report of seizure activity at home. His brother is not here unfortunately. We will monitor in the hospital tonight. Continue follow-up with PCP. CAD HTN GERD BPH Attestations Medical Necessity Statement*: Place in observation. Coding Level of Care Code Acute Halftone Operator for Chg Fwd Diagnoses Syncope R55 Orthostatic hypotension I95.1 Rib fractures S22.39XA Opacity of lung on imaging study R91.8 MAXIMILIANO (acute kidney injury) N17.9 Troponin level elevated R77.8
[2020-06-21 19:15] LABS: Creatine Phosphokinase 109 U/L (39-308); Thyroid Stimulating Hormone 0.76 uIU/mL (0.27-4.20)
[2020-06-21 19:53] LABS: Troponin 5 6HR 41.96 ng/L (0-15)
[2020-06-21 20:18] LABS: Troponin 5 6HR Delta -3.04 ng/L (0-12)
[2020-06-21] MEDS: guaiFENesin 600 mg Tablet PO (21:06)
[2020-06-21] MEDS: levETIRAcetam 500 mg Tablet 1000 MG PO (21:06)
[2020-06-21] MEDS: lactated ringers 1,000 ML 30 ML IV (23:25)
[2020-06-22] VITALS (10 sets, daily range): BP systolic 111–145; BP diastolic 62–74; PULSE 57–71; RESP 16–20; TEMP 36.6–36.9; O2SAT 94–97
[2020-06-22 05:58] LABS: Alanine Aminotransferase 8 U/L (0-41); Albumin Level 3.2 g/dL (3.5-5.2); Alkaline Phosphatase 95 IU/L (40-130); Anion Gap 11.8 (5-19); Aspartate Amino Transferase 13 U/L (0-40); Blood Urea Nitrogen 35 mg/dL (8-23); Carbon Dioxide 27 mmol/L (22-29); Chloride 103 mmol/L (98-107); Globulin 2.5 g/dL (1.3-4.6); Glucose 187 mg/dL (65-115); Magnesium 1.8 mg/dL (1.7-2.3); Osmolality Calculated 301 mOsm/kg (285-295); Sodium 139 mmol/L (136-145); Total Bilirubin 0.7 mg/dL (0.15-1.2); Total Protein 5.7 g/dL (6.6-8.7)
[2020-06-22 06:03] LABS: Potassium 2.8 mmol/L (3.5-5.1)
[2020-06-22] MEDS: levETIRAcetam 500 mg Tablet 1000 MG PO (06:21)
[2020-06-22] MEDS: clopidogrel 75 mg Tablet PO (06:22)
[2020-06-22] MEDS: finasteride 5 mg Tablet PO (06:22)
[2020-06-22] MEDS: potassium chloride ER 20 mEq Tablet 40 MEQ PO ×2 (06:22→12:28)
[2020-06-22] MEDS: roflumilast 500 mcg Tablet PO (06:22)
[2020-06-22] MEDS: tamsulosin 0.4 mg Capsule PO (06:22)
[2020-06-22] MEDS: pantoprazole DR 40 mg Tablet PO (06:23)
[2020-06-22] MEDS: guaiFENesin 600 mg Tablet PO (06:23)
[2020-06-22] MEDS: aspirin 325 mg Tablet PO (06:23)
--- NOTE | 2020-06-22 07:00 | USCV_ITS ---
Carter Cormier Age: 75 Gender: M : 1945 Exam Date: 06/22/2020 06:46 Ordering Phys: Amilcar Andrea MD Technologist: Niyah Callahan Exam Location: [facility] [place] Indication: SYNCOPE BP: 123 / 62 HR: 59 Rhythm: Sinus Technical Quality: Adequate MEASUREMENTS (Male / Female) Normal Values 2D ECHO LV Diastolic Diameter PLAX 5.3 cm 4.2 - 5.9 / 3.9 - 5.3 cm LV Systolic Diameter PLAX 4.2 cm LV Chamber Size 4.1 cm IVS Diastolic Thickness 1.3 cm 0.6 - 1.0 / 0.6 - 0.9 cm IVS Systolic Thickness 1.1 cm LVPW Diastolic Thickness 2.1 cm 0.6 - 1.0 / 0.6 - 0.9 cm LVPW Systolic Thickness 2.5 cm RV Chamber Size 2.8 cm LVOT Diameter 2.0 cm LV Ejection Fraction 2D Teich 43.0 % LV Ejection Fraction MOD 2C 49.1 % LV Ejection Fraction 2C AL 51.8 % LA Diameter 4.2 cm LA Width 3.5 cm LA Height 4.0 cm RA Width 2.7 cm RA Height 3.2 cm Aorta at Sinotubular Diameter 3.4 cm M-MODE LV Diastolic Diameter MM 6.4 cm 4.2 - 5.9 / 3.9 - 5.3 cm LV Systolic Diameter MM 4.5 cm LV Ejection Fraction MM Teich 55.4 % IVS Diastolic Thickness MM 1.0 cm 0.6 - 1.0 / 0.6 - 0.9 cm IVS Systolic Thickness MM 1.6 cm LVPW Diastolic Thickness MM 0.9 cm 0.6 - 1.0 / 0.6 - 0.9 cm LVPW Systolic Thickness MM 1.6 cm Aortic Annulus Diameter 3.9 cm LA Ao Ratio MM 1.3 MV E Point Septal Separation 0.8 cm DOPPLER AV Peak Velocity 175.0 cm/s LVOT Peak Velocity 116.0 cm/s AV Area Cont Eq vti 2.1 cm squared AV Area Cont Eq pk 2.2 cm squared MV Area PHT 3.5 cm squared Mitral E to A Ratio 0.9 MV E' Velocity 37.5 cm/s Mitral E to MV E' Ratio 4.9 Mitral E to LV E' Lateral Ratio 4.3 Mitral E to LV E' Septal Ratio 5.8 TR Peak Velocity 166.3 cm/s TR Peak Gradient 11.1 mmHg TV Peak E Velocity 57.3 cm/s Right Atrial Pressure 3.0 mmHg Pulmonary Artery Systolic Pressu 14.1 mmHg PV Peak Velocity 97.0 cm/s FINDINGS Left Ventricle Normal left ventricular cavity size. Normal left ventricular systolic function. No regional wall motion abnormalities. Left ventricular ejection fraction is estimated at 55 %. Grade I/IV diastolic dysfunction (abnormal relaxation filling pattern), normal to mildly elevated filling pressures. Right Ventricle The right ventricle is normal in size and function. Right Atrium The right atrium is normal in size. Left Atrium The left atrium is normal in size. Mitral Valve Mildly thickened mitral valve. Mild mitral annular calcification. No mitral valve stenosis. Trace mitral valve regurgitation. Aortic Valve Mild aortic valve calcification. No aortic valve stenosis. Trace aortic valve regurgitation. Tricuspid Valve Structurally normal tricuspid valve without significant stenosis or regurgitation. Pulmonary artery systolic pressure is normal. Pulmonic Valve Structurally normal pulmonic valve without significant stenosis. There is no pulmonic regurgitation. Pericardium Normal pericardium without effusion. Aorta Normal ascending aorta dimension. CONCLUSIONS 1-Normal left ventricular cavity size. Normal left ventricular systolic function. No regional wall motion abnormalities. Left ventricular ejection fraction is estimated at 55 %. Grade I/IV diastolic dysfunction (abnormal relaxation filling pattern), normal to mildly elevated filling pressures. 2-Mild aortic valve calcification. No aortic valve stenosis. Trace aortic valve regurgitation. 3-There is no pericardial effusion. 4-Pulmonary artery systolic pressure is within normal limits. 5-Right atrial pressure is around 5 mm of mercury. 6-There are no prior echocardiogram studies to compare. Gina Browne MD (Electronically Signed) Final Date: 22 June 2020 15:05 S
--- NOTE | 2020-06-22 07:00 | US_ITS ---
WS: [id number] ULTRASOUND RENAL TECHNIQUE: Ultrasound examination of both kidneys. CLINICAL INFORMATION: MAXIMILIANO vs CKD COMPARISON: None. FINDINGS: RIGHT nephrectomy LEFT: Numerous left renal cysts largest measuring Left kidney is normal in size and appearance. Echogenicity: Normal. Cortical thickness: 2.8 cm; Normal. Hydronephrosis: None. Perinephric fluid: None. Left kidney measures: 12.5 cm x 7.0 cm x 8.6 cm. Normal visualized aorta. Decompressed bladder. US/US renal BI* [id number] IMPRESSION: 1. Right nephrectomy. 2. Multiple simple left renal cysts largest measuring 3.9 x 2.8 x 3.2 cm 3. No hydronephrosis in left kidney.
[2020-06-22] MEDS: predniSONE 10 mg Tablet 30 MG PO (07:44)
--- NOTE | 2020-06-22 09:40 | PC.CHAP ---
Pastoral Care Encounter/Spiritual Assessment Type of Contact [] Declined bench tool maker visit [] Patient/Family/Request visit [] Outpatient visit [] Follow-up visit [] Physician referral [] Code/Alert [] Routine visit [] Staff referral [] Actively dying [] Patient sleeping [] Family support [] [] Out of room [] Palliative care [] [] Receiving care in room [] Pre-surgical visit [] Trauma [] Long length of stay [] ICU visit [] Other: Relational/Emotional Strength [] Patient feels connected with others/family/visitors/staff [] Distress [] Loneliness/isolation [] Abandonment Spirituality of Patient [] Person of Lucy [] Attends Confucianist of their Lucy [] Believes in Prayer [] Reads Bible or Jainism materials [] There are Spiritual issues to be addressed Housing Assistant Interventions [x] Prayer [] Active listening [] Non-anxious presence [] Spiritual/emotional support [] Crisis/trauma care [] Spiritual counseling [] Bereavement support [] Provided bereavement packet [] Provided Bible/devotional materials [] Provided toy/stuffed animal, coloring book to patient or family member [] Provided Communion [] Anointing/[place] [] Salvation [] Completed spiritual assessment [] Other: Impact on Illness or Injury [] Angry [] Fearful [] Anxious [] Often cries [] Exhaustion [] Unable to work [] Unable to attend christian [] Unable to walk/stand [] Unable to read [] Unable to drive [] Unable to eat/drink [] Unable to sleep [] Unable to be with family [] Patient intubated [] Other: Summary not talkative Time spent with patient 10 min
[2020-06-22] MEDS: ondansetron 4 MG Tablet PO (18:19)
--- NOTE | 2020-06-22 21:36 | P.DS_ITS ---
Discharge Providers Date of Admission: 06/21/20 17:13 Date of Discharge: June 22, 2020 Attending Provider at Admission: Amilcar Andrea Attending Provider at Discharge: Amilcar Andrea Primary Care Provider: Pankaj Vang MD Diagnoses at Discharge Discharge Diagnosis (1) Syncope: Status: Acute Qualifiers: Syncope type: vasovagal syncope Qualified Code(s): R55 - Syncope and collapse (2) Orthostatic hypotension: Status: Acute (3) Rib fractures: Status: Acute Qualifiers: Encounter type: initial encounter Fracture type: closed Laterality: left Rib fracture type: multiple ribs Qualified Code(s): S22.42XA - Multiple fractures of ribs, left side, initial encounter for closed fracture (4) Opacity of lung on imaging study: Status: Acute (5) MAXIMILIANO (acute kidney injury): Status: Acute (6) Troponin level elevated: Status: Acute Reason for Visit Reason for Visit: FALL/ WEAKNESS Hospital Course Hospital Course Very pleasant 75-year-old gentleman was kept in observation in the hospital after work-up in ER with finding of significant orthostatic hypotension. He had presented there after a fall tonight before due to a syncopal event after having orthostatic symptoms after standing up. He reports on and off orthostatic symptoms for a while. Denies any vertigo. He has had at least 1 prior fall several months. Recently in the bathtub. In ER he received imaging of C-spine, head and face CT. CT chest abdomen pelvis with finding of left-sided rib fractures 7-9, although without significant chest tenderness these appear to be old, with patient thinking so himself and more likely related to his previous fall in the tub. Incidentally noted right lung hazy peripheral opacification of unclear significance. He had no symptoms of pneumonia. Perhaps some mild pulmonary contusion. He did well on room air without hypoxia. Was using incentive spirometer. He was rehydrated in ER. His diuretic was held and is discontinued for now, as are his carvedilol (also with noted bradycardia 50- 60s), as well as valsartan and clonidine given blood pressures are soft and he is orthostatic. It appears that his orthostasis may be secondary to polypharmacy with dehydration, excessive treatment of hypertension, with resultant also acute kidney injury, creatinine 2.5, with history of right nephrectomy following kidney cancer in 1970s. His renal function improved with creatinine decreased down to 2. He required replacement of hypokalemia. Magnesium supplementation started on discharge in addition to potassium. He was monitored on telemetry and underwent echocardiogram assessment after noted elevation of [id number]. He has had no chest pain. No suggestion of acute CO. Telemetry with noted episode of bradycardia down to 50s in the beginning of his stay due to which carvedilol was discontinued on discharge. Echocardiogram with normal ejection fraction, grade 1 diastolic function, trace aortic regurgitation. Renal ultrasound with right nephrectomy. No hydronephrosis. His orthostatic blood pressures were reassessed today, with resolution of the significant orthostatic drop noted on presentation. He was feeling much better. Walked with physical therapy and worked with OT. Physical therapy was recommended for him at home with home health care and was ordered. He did not require a walker. He was cautioned to maintain orthostatic precautions at home. Please follow-up on orthostatic blood pressures in the office. Reassess his blood pressure and heart rate, volume status. Reassess renal function, p otassium, magnesium. Please reassess respiratory status and consider additional follow-up imaging of his infiltrates in the right lung to follow-up for resolution. Physical Exam Const: COMMON NORMALS: no acute distress, patient oriented x3 and alert ORIENTATION/CONSCIOUSNESS: Yes awake OTHER: Pleasant, conversant, sitting up in chair. In good spirits. Denies any lightheadedness. Did well with PT. Feels ready to go home. HENMT: COMMON NORMALS: oropharynx normal (Dry oral mucosa. Dentures.) Neck/C-Spine: COMMON NORMALS: no JVD Resp: COMMON NORMALS: normal respiratory effort and clear to auscultation bilaterally AUSCULTATION: clear to auscultation bilaterally Cardio: COMMON NORMALS: no JVD, regular rhythm, S1 normal heart sound present, S2 normal heart sound present and No murmurs present (Cardio) RHYTHM: regular rhythm HEART SOUNDS: S1 normal heart sound present and S2 normal heart sound present GI: COMMON NORMALS: Normal to inspection, nondistended, normoactive bowel sounds present, Soft to palpation and non-tender PALPATION: Yes Soft to palpation Extremity: COMMON NORMALS: no joint enlargement and no pedal edema Neuro: COMMON NORMALS: patient oriented x3 and moves all extremities SENSORIUM/ORIENTATION: Yes alert Skin: COMMON NORMALS: no rashes or lesions noted GENERAL SKIN EXAM: no rashes or lesions noted, dry skin and ecchymosis Discharge Data Data Completed and Pending: Completed Studies During Hospitalization Category Date Time Status CT cervical spin wo con* [id number] Stat Cat Scan 06/21/20 11:[address] chest abd pel wo con Urgent Cat Scan 06/21/20 11:[address] facial bones w o con* [id number] Stat Cat Scan 06/21/20 11:[address] head wo con* 7 0450 Stat Cat Scan 06/21/20 11:25 Completed CV echo complete* [id number] Routine Ultrasound 06/22/20 07:00 Completed US renal BI* [id number] Routine Ultrasound 06/22/20 07:00 Completed Labs from last 24 hours 06/22/20 04:51 Sodium 139 Potassium 2.8 L* Chloride 103 Carbon Dioxide 27 Anion Gap 11.8 BUN 35 H Creatinine 2.0 H GFR Calculation Not Reportable Glucose 187 H Calculated Osmolal ity 301 H Calcium 9.0 Magnesium 1.8 Total Bilirubin 0.7 AST 13 ALT 8 Alkaline Phosphata se 95 Total Protein 5.7 L Albumin 3.2 L Globulin 2.5 Vitals: Last Vital Signs Temp 97.8 F 06/22/20 19:57 Pulse 64 06/22/20 19:57 Resp 18 06/22/20 19:57 BP 145/74 06/22/20 19:57 Pulse Ox 95 06/22/20 19:57 Discharge Plan Discharge Patient Disposition: Home Health Service Condition: Stable Prescriptions: New potassium chloride 20 mEq tablet extended release 20 meq PO DAILY Qty: 7 RF: 0 magnesium 250 mg tablet 250 mg PO DAILY Qty: 30 RF: 0 Continued Advair Diskus 250-50 mcg/dose blister with device 1 inh INHALATION BID PRN (Reason: Shortness Of Breath) RF: 0 prednisone 10 mg tablet See Rx Instructions .ROUTE .COMPLEX RF: 0 aspirin 325 mg Tablet 325 mg PO DAILY@07 RF: 0 ondansetron HCl 4 mg tablet 4 mg PO Q6H PRN (Reason: Nausea And Vomiting) RF: 0 clopidogrel 75 mg tablet 75 mg PO DAILY@07 RF: 0 tamsulosin 0.4 mg capsule 0.4 mg PO DAILY@07 RF: 0 pantoprazole 40 mg tablet,delayed release (DR/EC) 40 mg PO DAILY@07 RF: 0 Nitrostat 0.4 mg Tablet, Sublingual 0.4 mg SUBLINGUAL Q5M PRN (Reason: Chest Pain) RF: 0 Miralax 17 gram/dose Powder 17 g PO DAILY PRN (Reason: Constipation) RF: 0 Ventolin HFA 90 mcg/actuation HFA aerosol inhaler 2 puff INHALATION Q4H PRN (Reason: Shortness Of Breath) RF: 0 fluticasone propionate 50 mcg/actuation spray,suspension 1 spray INTRANASAL DAILY PRN (Reason: Allergy Symptoms) RF: 0 finasteride 5 mg tablet 5 mg PO DAILY@07 RF: 0 cranberry 500 mg Capsule 500 mg PO DAILY@ RF: 0 levetiracetam 1,000 mg tablet 1,000 mg PO BID@ RF: 0 Daliresp 500 mcg tablet 500 mcg PO DAILY@ RF: 0 Mucinex 600 mg Tablet Extended Release 12hr 600 mg PO BID@ RF: 0 Changed furosemide 20 mg tablet 20 mg PO DAILY@07 PRN (Reason: Edema) Qty: 0 RF: 0 Discontinued carvedilol 25 mg tablet 25 mg PO BID@ RF: 0 clonidine 0.1 mg/24 hr patch weekly 0.1 mg transdermal Q7D RF: 0 valsartan 160 mg tablet 160 mg PO DAILY@ RF: 0 Discharge Orders: Discharge Order (Routine); Ordered 06/22/20 Ordered By: Amilcar Andrea Referrals: [facility] [Other] (Your information has been sent to [facility] to see if they can provide home health services. If you do not hear from them in 1-2 days, you may call them at the phone number provided.) Christal Maya NP [Referring] - (Please call on Thursday to make a follow up appointment to be seen in 4-7 days.) Discharge Diet: Diabetic Discharge Activity: Increase activity as tolerated, Limit activity as instructed and As per PT/OT instructions Patient Instructions: Potassium Chloride (By mouth), Acute Kidney Injury (DC), Rib Fracture (DC), Syncope (DC), Hypotension (DC) Activity Restrictions/Additional Instructions: Please maintain strict orthostatic precautions, rise slowly from laying to sitting and sitting to standing. If you feel lightheaded, please sit down or lie down immediately, even if on the floor. Due to soft blood pressures for now your blood pressure medications are held entirely. Please be aware that your prostate medications tamsulosin and finastride can also contribute to soft blood pressure or blood pressure decrease with sitting or standing. Please discuss with your primary care doctor when it may be safe to resume your blood pressure medications if there is still needed. Please have your primary care doctor follow-up on your kidney injury. Your creatinine in the hospital was 2.5, with improvement to 2. Please avoid any NSAIDs like ibuprofen, Aleve, etc. Due to low potassium you are given a potassium supplement. Please have your primary care doctor follow-up your potassium levels. If you experience any concerning symptoms, including chest pain, severe shortnes s of breath, further episodes of fainting or fall, low blood pressure, or other concerning symptoms, please seek medical attention without delay. Please monitor your blood pressure 3 times daily, maintain log to bring to your appointment. Please discuss with your primary care doctor regarding hazy opacity seen in the periphery of your right lung. Have your primary care doctor arrange for follow- up imaging. Please continue use of incentive spirometry. For now you are not started on antibiotics as suspicion for pneumonia is low, however, if you develop cough, fever, shortness of breath, chills, muscle aches, headache, or other symptoms, please seek medical attention. Please discuss with your primary care doctor about broken ribs on the left side, 7-9. Discharge Attestations Time Spent in Discharge Care*: greater than 30 min Quality Metrics Clinical Quality Measures During this hospital stay, did patient experience: None Coding Level of Care Code Acute Decommissioning Well Site Manager for Param Wright Diagnoses Syncope R55 Syncope type: vasovagal syncope Orthostatic hypotension I95.1 Rib fractures S22.42XA Encounter type: initial encounter Fracture type: closed Laterality: left Rib fracture type: multiple ribs Opacity of lung on imaging study R91.8 MAXIMILIANO (acute kidney injury) N17.9 Troponin level elevated R77.8
== END 2020-06-22 19:58 | disposition home health service (06) ==
LOC: ER 11:38 → MEDSURG 17:31
PROVIDERS: Admitting Provider Internal Medicine; Emergency Provider Family Medicine; PCP Family Medicine; Visit Provider Internal Medicine
DX: I95.1 Orthostatic hypotension (principal); S22.39XA Fracture of one rib, unspecified side, initial encounter for closed fracture; W19.XXXA Unspecified fall, initial encounter; R91.8 Other nonspecific abnormal finding of lung field; N17.9 Acute kidney failure, unspecified; R77.8 Other specified abnormalities of plasma proteins; Z79.82 Long term (current) use of aspirin; J45.909 Unspecified asthma, uncomplicated; N40.0 Benign prostatic hyperplasia without lower urinary tract symptoms; I25.10 Atherosclerotic heart disease of native coronary artery without angina pectoris; K21.9 Gastro-esophageal reflux disease without esophagitis; I10 Essential (primary) hypertension; Z85.53 Personal history of malignant neoplasm of renal pelvis; Z87.891 Personal history of nicotine dependence; R79.89 Other specified abnormal findings of blood chemistry; E87.6 Hypokalemia
CPT/HCPCS: 12345; 36415; 70450; 70486; 71250; 72125; 74176; 76770; 80048; 80053; 80306; 81001; 82550; 83605; 83735; 83880; 84145; 84443; 84484; 85025; 85610; 86140; 93005; 93306; 94640; 96360; 97161; 97165; 97530; 99282; 99283; 99285; G0378; J3535; J7030; J7512; Q0162

== ENCOUNTER → 2021-10-01 11:18 | Outpatient (BNVA) | payer MEDICARE, MEDICAID, SELFPAY | PROVIDERS: PCP Family Medicine; Visit Provider Nurse Practitioner Family | DX: M25.511 Pain in right shoulder (principal) | CPT/HCPCS: 73030 ==

== ENCOUNTER → 2022-01-01 14:56 | Outpatient (BNVA) | payer MEDICARE, MEDICAID, SELFPAY | PROVIDERS: PCP Family Medicine; Visit Provider Emergency Medicine | DX: M25.511 Pain in right shoulder (principal); G89.29 Other chronic pain | CPT/HCPCS: 73030 ==

== ENCOUNTER 2025-04-17 13:48 | Emergency (ER) | payer MEDICARE, MEDICAID, SELFPAY ==
[2025-04-17 13:47] VITALS: BP 120/60; PULSE 74; RESP 23; TEMP 36.8; O2SAT 92; BMI 34.9
--- NOTE | 2025-04-17 13:49 | XR_ITS ---
WS: [id number] XR chest 1V portable [id number] REASON FOR EXAM: dyspnea/cough FINDINGS: Moderate to significant tortuosity and ectasia of the thoracic aorta. Heart size at the upper limits of normal. Calcified granulomas disease bilaterally. Opacity in the right lower hemithorax with obscuration of the diaphragmatic contour. Moderate degenerative spondylosis in the mid and lower thoracic spine. 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 XR/XR chest 1V portable [id number] IMPRESSION: Right lower hemithorax abnormality of unknown chronicity which likely represent s atelectasis and/or pneumonitis.
--- NOTE | 2025-04-17 13:50 | ECG_ITS ---
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 Measurements Intervals [place] Rate: 70 P: -8 WV: 203 QRS: -20 QRSD: 145 T: 84 QT: 420 QTc: 453 Interpretive Statements SINUS RHYTHM WITH OCCASIONAL SUPRAVENTRICULAR PREMATURE COMPLEXES LEFT BUNDLE BRANCH BLOCK [120+ ms QRS DURATION, 80+ ms Q/S IN V1/V2, 85+ ms R IN I/aVL/V5/V6] Compared to ECG 06/21/2020 17:36:52 Left bundle-branch block now present Sinus bradycardia no longer present Intraventricular conduction delay no longer present T-wave abnormality no longer present Electronically Signed On 04-20-2025 08:48:57 CDT by Brendon Ramirez M.D. [email or web address]
--- OUTSIDE RECORDS SUMMARY | 2025-04-17 14:05 | XMS_ITS | Encounter Summary ---
Author Organization [facility] Address [address] Attn: [place] [address] Care Team Providers Care Sales Associate Key Holder Name Role Phone Leonel Plascencia MD Primary Care Provider Unavailable Encounter Details Date Type Department Care Team (Late st Contact Info) Description 09/01/2001 Outpatient Historical Joe Bates MD [address] [place] [address] Social History Tobacco Use Types Packs/Day Years Used Date Smoking Tobacco: Never Assessed Sex and Gender Information Value Date Recorded Sex Assigned at Not on file 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
--- OUTSIDE RECORDS SUMMARY | 2025-04-17 14:05 | XMS_ITS | Encounter Summary ---
Author Organization [facility] Address [address] [place] [address] Care Team Providers Care Apparel Stock Checker Name Role Phone Leonel Plascencia MD Primary Care Provider Unavailable Encounter Details Date Type Department Care Team (Latest Contact Info) Description 01/18/2002 Outpatient Historical [facility] [address] [phone] Joe Bates MD [address] [phone] ACUTE BRONCHITIS (Primary Dx); HYPERTENSION NOS Social History Tobacco Use Types Packs/Day Years Used Date Smoking Tobacco: Never Assessed Sex and Gender Information Value Date Recorded Sex Assigned at Not on file 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
--- OUTSIDE RECORDS SUMMARY | 2025-04-17 14:05 | XMS_ITS | Encounter Summary ---
Author Organization [facility] Address [address] [place] [address] Care Team Providers Care Drug Safety Physician Name Role Phone Leonel Plascencia MD Primary Care Provider Unavailable Encounter Details Date Type Department Care Team (Latest Contact Info) Description 11/23/2001 Outpatient Historical [facility] [address] [phone] Joe Bates MD [address] [phone] ABDOMINAL PAIN UNSPEC SITE (Primary Dx); HYPERTENSION NOS Social History Tobacco Use Types Packs/Day Years Used Date Smoking Tobacco: Never Assessed Sex and Gender Information Value Date Recorded Sex Assigned at Not on file 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
--- OUTSIDE RECORDS SUMMARY | 2025-04-17 14:05 | XMS_ITS | Encounter Summary ---
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
--- OUTSIDE RECORDS SUMMARY | 2025-04-17 14:05 | XMS_ITS | Encounter Summary ---
Author Organization [facility] Address [address] [place] [address] Care Team Providers Care Moisture Machine Tender Name Role Phone Leonel Plascencia MD Primary Care Provider Unavailable Encounter Details Date Type Department Care Team (Latest Contact Info) Description 05/01/2003 Outpatient Historical [facility] [address] [phone] Joe Bates MD [address] [phone] Vaccine for influenza (Primary Dx) Social History Tobacco Use Types Packs/Day Years Used Date Smoking Tobacco: Never Assessed Sex and Gender Information Value Date Recorded Sex Assigned at Not on file 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
--- OUTSIDE RECORDS SUMMARY | 2025-04-17 14:05 | XMS_ITS | Encounter Summary ---
Author Organization [facility] Address [address] [place] [address] Care Team Providers Care Closet Organizer Name Role Phone Leonel Plascencia MD Primary Care Provider Unavailable Encounter Details Date Type Department Care Team (Latest Contact Info) Description 10/17/2005 Outpatient Historical [facility] [address] [place] [address] Norberto Spangler MD [address] [place] [address] [place] [phone] Benign King Lg Bowel (Primary Dx); Blood in Stool; Family History of Malignant Neoplasm of Gastrointestinal Tract Social History Tobacco Use Types Packs/Day Years Used Date Smoking Tobacco: Never Assessed Sex and Gender Information Value Date Recorded Sex Assigned at Not on file Legal Sex Male 6: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
--- OUTSIDE RECORDS SUMMARY | 2025-04-17 14:05 | XMS_ITS | Encounter Summary ---
Author Organization [facility] Address [address] [place] [address] Care Team Providers Care Body Shop Worker Name Role Phone Leonel Plascencia MD Primary Care Provider Unavailable Encounter Details Date Type Department Care Team (Latest Contact Info) Description 05/16/1999 Outpatient Historical [facility] [address] [phone] Joe Bates MD [address] [phone] Need vaccination-viral disease (Primary Dx) Social History Tobacco Use Types Packs/Day Years Used Date Smoking Tobacco: Never Assessed Sex and Gender Information Value Date Recorded Sex Assigned at Not on file Legal Sex Male 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
--- OUTSIDE RECORDS SUMMARY | 2025-04-17 14:05 | XMS_ITS | Encounter Summary ---
Author Organization [facility] Address [address] [place] [address] Care Team Providers Care Digital Printer Operator Name Role Phone Leonel Plascencia MD Primary Care Provider Unavailable Encounter Details Date Type Department Care Team (Latest Contact Info) Description 09/01/2001 Outpatient Historical [facility] [place] [address] [phone] Joe Bates MD [address] [phone] HYPERTENSION NOS (Primary Dx) Social History Tobacco Use Types Packs/Day Years Used Date Smoking Tobacco: Never Assessed Sex and Gender Information Value Date Recorded Sex Assigned at Not on file Legal Sex Male 6:05 AM COMPUTER 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
--- OUTSIDE RECORDS SUMMARY | 2025-04-17 14:05 | XMS_ITS | Encounter Summary ---
Author Organization [facility] Address [address] [place] [address] Care Team Providers Care Sales And Events Coordinator Name Role Phone Leonel Plascencia MD Primary Care Provider Unavailable Encounter Details Date Type Department Care Team (Latest Contact Info) Description 12/21/2001 Outpatient Historical [facility] [address] [phone] Joe Bates MD [address] [phone] URINARY OBSTRUCTION NOS (Primary Dx) Social History Tobacco Use Types Packs/Day Years Used Date Smoking Tobacco: Never Assessed Sex and Gender Information Value Date Recorded Sex Assigned at Not on file Legal Sex Male 6: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
--- OUTSIDE RECORDS SUMMARY | 2025-04-17 14:05 | XMS_ITS | Encounter Summary ---
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 Social History Tobacco Use Types Packs/Day Years Used Date Smoking Tobacco: Never Assessed Sex and Gender Information Value Date Recorded Sex Assigned at Not on file 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
--- OUTSIDE RECORDS SUMMARY | 2025-04-17 14:05 | XMS_ITS | Encounter Summary ---
Author Organization [facility] Address [address] [facility] Attn: Epic Prelude ADT [place] [address] Care Team Providers Care Collision Center Manager Name Role Phone Leonel Plascencia MD Primary Care Provider Unavailable Encounter Details Date Type Department Care Team (Late st Contact Info) Description 11/10/2001 Outpatient Historical Pedro Cohen, DEXIGRAPH OPERATOR [address] [place], [place] [address] Social History Tobacco Use Types Packs/Day Years Used Date Smoking Tobacco: Never Assessed Sex and Gender Information Value Date Recorded Sex Assigned at Not on file Legal Sex Male 6:05 AM COLLECTIONS 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
--- OUTSIDE RECORDS SUMMARY | 2025-04-17 14:05 | XMS_ITS | Encounter Summary ---
Author Organization [facility] Address [address] [place] [address] Care Team Providers Care Yarn Tester Name Role Phone Leonel Plascencia MD Primary Care Provider Unavailable Encounter Details Date Type Department Care Team (Latest Contact Info) Description 02/07/2002 Outpatient Historical [facility] Medicine [place] [address] [phone] Joe Bates MD [address] [phone] HYPERTENSION NOS (Primary Dx) Social History Tobacco Use Types Packs/Day Years Used Date Smoking Tobacco: Never Assessed Sex and Gender Information Value Date Recorded Sex Assigned at Not on file Legal Sex Male 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
--- OUTSIDE RECORDS SUMMARY | 2025-04-17 14:05 | XMS_ITS | Clinical Summary ---
Author Organization [facility] Address [address] [place] [address] Phone Care Team Providers Care Film Reproducer Name Role Phone Leonel Plascencia MD Primary Care Provider Unavailable Immunizations Immunization Administration Dates Next Due (PNEUMOVAX 23)(50 YRS UP) PN EUMOCOCCAL POLYSACCHARIDE (PPV23) 0.5 ML, IM 07/21/2001 (TDVAX)(7 YRS UP) TETANUS AN D DIPHTHERIA TOXOIDS, ADSORBED (2 LF OF TETANUS TOXOID AND 2 LF OF DIPHTHERIA TOXOID), 0.5ML (PF), IM 11/13/2006 Influenza Seasonal Unspecifi ed Formulation IM 05/01/2003,04/27/2002,06/01/2001,05/16,05/11/1997,05/13/1996 Social History Tobacco Use Types Packs/Day Years Used Date Smoking Tobacco: Never Assessed Sex and Gender Information Value Date Recorded Sex Assigned at Not on file Legal Sex Male 6: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 SAP ABAP 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 Gender Identity Not on file Sexual Orientation Not on file Last Filed Vital Signs Vital Sign Reading Time Taken Comments Blood Pressure 181/97 05/11/2019 9:20 PM CDT Pulse 63 05/11/2019 9:20 PM CDT Temperature 36.8 C (98.2 F) 05/11/2019 9:20 PM CDT Respiratory Rate 15 05/11/2019 9:20 PM CDT Oxygen Saturation 96% 05/11/2019 9:20 PM CDT Inhaled Oxygen Concentration - - Weight - - Height - - Body Mass Index - - Plan of Treatment Health Maintenance Due Date Last Done Comments ZOSTER VACCINE (1 of 2) 1993 PNEUMOCOCCAL VACCINE 50+ YEA RS (2 of 2 - PCV) 07/21/2002 07/21/2001 DTAP/TDAP/TD VACCINES (1 - Tdap) 11/14/2006 11/14/19 07 RSV VACCINE (60+ or ) (1 - 1-dose 75+ series) 2018 INFLUENZA VACCINE (#1) 2025 4, 05/01/2003, 04/27/2002, Additional history exists COLORECTAL SCREENING Discontinued 10/17/2005 Colorectal Cancer Screening Discontinued FIT-DNA Q 3 years Discontinued FIT/FOBT Q 1 year Discontinued Flex Sig/CT Colonography Q 5 years Discontinued Insurance [phone] [place] [id number] MEDICAID [place] MEDICARE PART B Care Teams Film Reproducer Relationship Specialty Start Date End Date Leonel Plascencia MD PCP - General 07/22/02
--- OUTSIDE RECORDS SUMMARY | 2025-04-17 14:05 | XMS_ITS | Encounter Summary ---
Author Organization [facility] Address [address] [place] [address] Care Team Providers Care Systems Mgr Name Role Phone Leonel Plascencia MD Primary Care Provider Unavailable Encounter Details Date Type Department Care Team (Latest Contact Info) Description 07/21/2001 Outpatient Historical [facility] [address] [phone] Joe Bates MD [address] [phone] VACCINE FOR SINGLE BACT DIS OTHER (Primary Dx) Social History Tobacco Use Types Packs/Day Years Used Date Smoking Tobacco: Never Assessed Sex and Gender Information Value Date Recorded Sex Assigned at Not on file 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
--- OUTSIDE RECORDS SUMMARY | 2025-04-17 14:05 | XMS_ITS | Encounter Summary ---
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) Social History Tobacco Use Types Packs/Day Years Used Date Smoking Tobacco: Never Assessed Sex and Gender Information Value Date Recorded Sex Assigned at Not on file Legal Sex Male 6:05 AM CREDIT INTERVIEWER Gender Identity Not on file Sexual Orientation Not on file documented as of this encounter Plan of Treatment Not on file documented as of this encounter Visit Diagnoses Diagnosis Spondylosis of unspecified site without mention of myelopathy- Primary documented in this encounter Care Teams Pie Bottomer Relationship Specialty Start Date End Date Leonel Plascencia MD PCP - General 07/22/02 documented as of this encounter
--- OUTSIDE RECORDS SUMMARY | 2025-04-17 14:05 | XMS_ITS | Encounter Summary ---
Author Organization [facility] Address [address] [place] [address] Care Team Providers Care Stockkeeper Name Role Phone Leonel Plascencia MD Primary Care Provider Unavailable Encounter Details Date Type Department Care Team (Latest Contact Info) Description 02/21/2002 Outpatient Historical [facility] [address] [phone] Joe Bates MD [address] [phone] CHEST PAIN NOS (Primary Dx); HYPERTENSION NOS; CYST OF KIDNEY, ACQUIRED Social History Tobacco Use Types Packs/Day Years Used Date Smoking Tobacco: Never Assessed Sex and Gender Information Value Date Recorded Sex Assigned at Not on file Legal Sex Male 6: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
--- OUTSIDE RECORDS SUMMARY | 2025-04-17 14:05 | XMS_ITS | Encounter Summary ---
Author Organization [facility] Address [address] [place] [address] Care Team Providers Care Osd Clerk Name Role Phone Leonel Plascencia MD Primary Care Provider Unavailable Encounter Details Date Type Department Care Team (Latest Contact Info) Description 01/30/2006 Outpatient Historical [facility]urg [facility] 1967 [facility] [address] [place] [phone] Leroy Pearl MD NO ADDRESS ON FILE Lipoma of Other Skin and Subcutaneous Tissue (Primary Dx); Follow-Up Examination, Following Unspecified Surgery Social History Tobacco Use Types Packs/Day Years Used Date Smoking Tobacco: Never Assessed Sex and Gender Information Value Date Recorded Sex Assigned at Not on file Legal Sex Male 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
--- OUTSIDE RECORDS SUMMARY | 2025-04-17 14:05 | XMS_ITS | Encounter Summary ---
Author Organization [facility] Address [address] [place] [address] Care Team Providers Care Food Service Utility Worker Name Role Phone Leonel Plascencia MD Primary Care Provider Unavailable Encounter Details Date Type Department Care Team (Late st Contact Info) Description 04/27/2002 Outpatient Historical [address] [phone] Social History Tobacco Use Types Packs/Day Years Used Date Smoking Tobacco: Never Assessed Sex and Gender Information Value Date Recorded Sex Assigned at Not on file Legal Sex Male 6:05 AM SLIP OPERATOR Gender Identity Not on file Sexual Orientation Not on file documented as of this encounter Plan of Treatment Not on file documented as of this encounter Visit Diagnoses Not on filedocumented in this encounter Care Teams Food Service Utility Worker Relationship Specialty Start Date End Date Leonel Plascencia MD PCP - General 07/22/02 documented as of this encounter
--- OUTSIDE RECORDS SUMMARY | 2025-04-17 14:05 | XMS_ITS | Encounter Summary ---
Author Organization [facility] Address [address] [place] [address] Care Team Providers Care Cheese Cook Name Role Phone Leonel Plascencia MD Primary Care Provider Unavailable Encounter Details Date Type Department Care Team (Latest Contact Info) Description 04/27/2002 Outpatient Historical [address] [phone] Marilu Holt MD [address] [place] [address], [address] OTHER MALAISE AND FATIGUE (Primary Dx); INSOMNIA NEC; HYPERTENSION NOS; VACCINE FOR INFLUENZA Social History Tobacco Use Types Packs/Day Years Used Date Smoking Tobacco: Never Assessed Sex and Gender Information Value Date Recorded Sex Assigned at Not on file Legal Sex Male 6: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
--- OUTSIDE RECORDS SUMMARY | 2025-04-17 14:05 | XMS_ITS | Encounter Summary ---
Author Organization [facility] Address [address] [place] [address] Care Team Providers Care Big Data Platform Architect Name Role Phone Leonel Plascencia MD Primary Care Provider Unavailable Encounter Details Date Type Department Care Team (Latest Contact Info) Description 05/11/2003 Outpatient Historical [facility] Medicine [place] [address] [phone] Joe Bates MD [address] [phone] HYPERTENSION NOS (Primary Dx) Social History Tobacco Use Types Packs/Day Years Used Date Smoking Tobacco: Never Assessed Sex and Gender Information Value Date Recorded Sex Assigned at Not on file 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
--- OUTSIDE RECORDS SUMMARY | 2025-04-17 14:05 | XMS_ITS | Encounter Summary ---
Author Organization [facility] Address [address] [place] [address] Care Team Providers Care Brick Mason Name Role Phone Leonel Plascencia MD Primary Care Provider Unavailable Encounter Details Date Type Department Care Team (Latest Contact Info) Description 01/16/2006 Outpatient Historical [facility] [place] 1967 [facility] [address] [place] [phone] Leroy Pearl MD NO ADDRESS ON FILE Lipoma of Other Skin and Subcutaneous Tissue (Primary Dx) Social History Tobacco Use Types Packs/Day Years Used Date Smoking Tobacco: Never Assessed Sex and Gender Information Value Date Recorded Sex Assigned at Not on file Legal Sex Male 6:05 AM BREASTER Gender Identity Not on file Sexual Orientation Not on file documented as of this encounter Plan of Treatment Not on file documented as of this encounter Visit Diagnoses Diagnosis Lipoma of other skin and subcutaneous tissue- Primary documented in this encounter Care Teams Brick Mason Relationship Specialty Start Date End Date Leonel Plascencia MD PCP - General 07/22/02 documented as of this encounter
--- OUTSIDE RECORDS SUMMARY | 2025-04-17 14:05 | XMS_ITS | Encounter Summary ---
Author Organization [facility] Address [address] [place] [address] Care Team Providers Care Quote Clerk Name Role Phone Leonel Plascencia MD Primary Care Provider Unavailable Encounter Details Date Type Department Care Team (Late st Contact Info) Description 01/30/2003 Outpatient Historical [facility] Urology- [address] [place] [phone] Leonel Plascencia MD NO ADDRESS ON FILE CYST OF KIDNEY, ACQUIRED (Primary Dx); ABDOMINAL PAIN UNSPEC SITE Social History Tobacco Use Types Packs/Day Years Used Date Smoking Tobacco: Never Assessed Sex and Gender Information Value Date Recorded Sex Assigned at Not on file Legal Sex Male 6:05 AM APPEALS NURSE Gender Identity Not on file Sexual Orientation Not on file documented as of this encounter Plan of Treatment Not on file documented as of this encounter Visit Diagnoses Diagnosis Acquired cyst of kidney- Primary Abdominal pain, unspecified site documented in this encounter Care Teams Quote Clerk Relationship Specialty Start Date End Date Leonel Plascencia MD PCP - General 07/22/02 documented as of this encounter
--- OUTSIDE RECORDS SUMMARY | 2025-04-17 14:05 | XMS_ITS | Encounter Summary ---
Author Organization [facility] Address [address] [place] [address] Care Team Providers Care Lighting Fixture Installer Name Role Phone Leonel Plascencia MD Primary Care Provider Unavailable Encounter Details Date Type Department Care Team (Latest Contact Info) Description 05/23/2002 Outpatient Historical [facility] Multidisciplinary Chronic Pain [address] [place] [phone] Adis Cruz MD NO ADDRESS ON FILE ABDOMINAL PAIN RLQ (Primary Dx) Social History Tobacco Use Types Packs/Day Years Used Date Smoking Tobacco: Never Assessed Sex and Gender Information Value Date Recorded Sex Assigned at Not on file Legal Sex Male 6:05 AM DIAMOND SAW OPERATOR Gender Identity Not on file Sexual Orientation Not on file documented as of this encounter Plan of Treatment Not on file documented as of this encounter Visit Diagnoses Diagnosis Abdominal pain, right lower quadrant- Primary documented in this encounter Care Teams Lighting Fixture Installer Relationship Specialty Start Date End Date Leonel Plascencia MD PCP - General 07/22/02 documented as of this encounter
--- OUTSIDE RECORDS SUMMARY | 2025-04-17 14:05 | XMS_ITS | Encounter Summary ---
Author Organization [facility] Address [address] [place] [address] Care Team Providers Care Non Categorical Preschool Teacher Name Role Phone Leonel Plascencia MD Primary Care Provider Unavailable Encounter Details Date Type Department Care Team (Late st Contact Info) Description 01/22/2006 Outpatient Historical [facility] [address] [place] [address] Leroy Pearl MD NO ADDRESS ON FILE Localized Superficial Swelling, Mass, or Lump (Primary Dx) Social History Tobacco Use Types Packs/Day Years Used Date Smoking Tobacco: Never Assessed Sex and Gender Information Value Date Recorded Sex Assigned at Not on file Legal Sex Male 6:05 AM BLOCK PILER Gender Identity Not on file Sexual Orientation Not on file documented as of this encounter Plan of Treatment Not on file documented as of this encounter Visit Diagnoses Diagnosis Localized superficial swelling, mass, or lump- Primary documented in this encounter Care Teams Non Categorical Preschool Teacher Relationship Specialty Start Date End Date Leonel Plascencia MD PCP - General 07/22/02 documented as of this encounter
--- OUTSIDE RECORDS SUMMARY | 2025-04-17 14:05 | XMS_ITS | Encounter Summary ---
Author Organization [facility] Address [address] [place] [address] Care Team Providers Care Stage Set Up Worker Name Role Phone Leonel Plascencia MD Primary Care Provider Unavailable Encounter Details Date Type Department Care Team (Late st Contact Info) Description 08/01/2002 Outpatient Historical [facility] Urology- [address] [place] [phone] Leonel Plascencia MD NO ADDRESS ON FILE CYST OF KIDNEY, ACQUIRED (Primary Dx) Social History Tobacco Use Types Packs/Day Years Used Date Smoking Tobacco: Never Assessed Sex and Gender Information Value Date Recorded Sex Assigned at Not on file Legal Sex Male 6:05 AM 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
--- OUTSIDE RECORDS SUMMARY | 2025-04-17 14:05 | XMS_ITS | Encounter Summary ---
Author Organization [facility] Address [address] [place] [address] Care Team Providers Care Tender Labor Name Role Phone Leonel Plascencia MD Primary Care Provider Unavailable Encounter Details Date Type Department Care Team (Latest Contact Info) Description 03/15/2002 Outpatient Historical [facility] [address] [phone] Joe Bates MD [address] [phone] PAINFUL RESPIRATION (Primary Dx) Social History Tobacco Use Types Packs/Day Years Used Date Smoking Tobacco: Never Assessed Sex and Gender Information Value Date Recorded Sex Assigned at Not on file Legal Sex Male 6: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
--- OUTSIDE RECORDS SUMMARY | 2025-04-17 14:05 | XMS_ITS | Encounter Summary ---
Author Organization [facility] Address [address] [place] [address] Care Team Providers Care Metal Mixer Name Role Phone Leonel Plascencia MD Primary Care Provider Unavailable Encounter Details Date Type Department Care Team (Latest Contact Info) Description 12/24/2001 Outpatient Historical [facility] Medicine [address] [phone] Yajaira Dillard MD [address] [place] [phone] COUGH (Primary Dx); BACKACHE NOS Social History Tobacco Use Types Packs/Day Years Used Date Smoking Tobacco: Never Assessed Sex and Gender Information Value Date Recorded Sex Assigned at Not on file Legal Sex Male 6: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
--- OUTSIDE RECORDS SUMMARY | 2025-04-17 14:05 | XMS_ITS | Encounter Summary ---
Author Organization [facility] Address [address] [place] [address] Care Team Providers Care Drier Take Off Tender Name Role Phone Leonel Plascencia MD Primary Care Provider Unavailable Encounter Details Date Type Department Care Team (Latest Contact Info) Description 09/23/2006 Outpatient Historical [facility] Pulmonology-Octavio Garcia [place] [address] [place] [phone] Flaquito Goodson MD [address] [place] [address] Chronic Airway Obstruction, not Elsewhere Classified (CMS/HCC) (Primary Dx); Cough Social History Tobacco Use Types Packs/Day Years Used Date Smoking Tobacco: Never Assessed Sex and Gender Information Value Date Recorded Sex Assigned at Not on file Legal Sex Male 6: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
--- OUTSIDE RECORDS SUMMARY | 2025-04-17 14:05 | XMS_ITS | Encounter Summary ---
Author Organization [facility] Address [address] Attn: [place] [address] Care Team Providers Care Data Warehousing Architect Name Role Phone Leonel Plascencia MD Primary Care Provider Unavailable Encounter Details Date Type Department Care Team (Late st Contact Info) Description 12/21/2001 Outpatient Historical Joe Bates MD [address] [place] [address] Social History Tobacco Use Types Packs/Day Years Used Date Smoking Tobacco: Never Assessed Sex and Gender Information Value Date Recorded Sex Assigned at Not on file Legal Sex Male 6:05 AM DRAPERY MAKER Gender Identity Not on file Sexual Orientation Not on file documented as of this encounter Plan of Treatment Not on file documented as of this encounter Visit Diagnoses Not on filedocumented in this encounter Care Teams Data Warehousing Architect Relationship Specialty Start Date End Date Leonel Plascencia MD PCP - General 07/22/02 documented as of this encounter
--- OUTSIDE RECORDS SUMMARY | 2025-04-17 14:05 | XMS_ITS | Encounter Summary ---
Author Organization [facility] Address [address] [place] [address] Care Team Providers Care Energy Analyst Name Role Phone Leonel Plascencia MD Primary Care Provider Unavailable Encounter Details Date Type Department Care Team (Latest Contact Info) Description 06/21/2001 Outpatient Historical [facility] [address] [phone] Joe Bates MD [address] [phone] UNSPECIFIED VIRAL INFECTION (Primary Dx) Social History Tobacco Use Types Packs/Day Years Used Date Smoking Tobacco: Never Assessed Sex and Gender Information Value Date Recorded Sex Assigned at Not on file 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
--- OUTSIDE RECORDS SUMMARY | 2025-04-17 14:05 | XMS_ITS | Encounter Summary ---
Author Organization [facility] Address [address] [place] [address] Care Team Providers Care Document Restorer Name Role Phone Leonel Plascencia MD Primary Care Provider Unavailable Encounter Details Date Type Department Care Team (Late st Contact Info) Description 07/07/2002 Outpatient Historical [facility] Urology- [place] [address] [place] [phone] Leonel Plascencia MD NO ADDRESS ON FILE ABDOMINAL PAIN UNSPEC SITE (Primary Dx); CYST OF KIDNEY, ACQUIRED; SCREENING MAL NEOP-PROSTATE Social History Tobacco Use Types Packs/Day Years Used Date Smoking Tobacco: Never Assessed Sex and Gender Information Value Date Recorded Sex Assigned at Not on file 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
--- OUTSIDE RECORDS SUMMARY | 2025-04-17 14:05 | XMS_ITS | Clinical Summary ---
Author Organization [facility] Address [address] [place] [address] Phone Care Team Providers Care Payroll Professional Name Role Phone Leonel Plascencia MD Primary [...] at Not on file Legal Sex Male 1:08 AM TALKBACK HOST Gender Identity Not on file Sexual Orientation Not on file Last Filed Vital Signs Vital Sign Reading Time Taken Comments Blood Pressure 181/97 05/11/2019 9:20 PM CDT Pulse 63 05/11/2019 9:20 PM CDT Temperature 36.8 C (98.2 F) 05/11/2019 9:20 PM CDT Respiratory Rate 15 05/11/2019 9:20 PM CDT Oxygen Saturation - - Inhaled Oxygen Concentration - - Weight - [...] 75+ series) 2018 INFLUENZA VACCINE (#1) 2025 3, 04/27/2002, 06/01/2001, Additional history exists Insurance MEDICAID [place]ARE PART B Care Teams Payroll Professional Relationship Specialty Start Date End Date Leonel Plascencia MD PCP - General 07/22/02
--- OUTSIDE RECORDS SUMMARY | 2025-04-17 14:05 | XMS_ITS | Encounter Summary ---
Author Organization [facility] Address [address] [place] [address] Care Team Providers Care Chief Mate Name Role Phone Leonel Plascencia MD Primary Care Provider Unavailable Encounter Details Date Type Department Care Team (Latest Contact Info) Description 06/02/2001 Outpatient Historical [facility] Medicine [place] [address] [phone] Joe Bates MD [address] [phone] BACKACHE NOS (Primary Dx) Social History Tobacco Use Types Packs/Day Years Used Date Smoking Tobacco: Never Assessed Sex and Gender Information Value Date Recorded Sex Assigned at Not on file 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
--- OUTSIDE RECORDS SUMMARY | 2025-04-17 14:05 | XMS_ITS | Encounter Summary ---
Author Organization [facility] Address [address] [facility] Attn: Epic Prelude ADT [place] [address] Care Team Providers Care Summer Nanny Name Role Phone Leonel Plascencia MD Primary Care Provider Unavailable Encounter Details Date Type Department Care Team (Late st Contact Info) Description 04/27/2002 Outpatient Historical Marilu Holt MD 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
--- OUTSIDE RECORDS SUMMARY | 2025-04-17 14:05 | XMS_ITS | Encounter Summary ---
Author Organization [facility] Address [address] [place] [address] Care Team Providers Care Pastry Supervisor Name Role Phone Leonel Plascencia MD Primary Care Provider Unavailable Encounter Details Date Type Department Care Team (Latest Contact Info) Description 07/22/2002 Outpatient Historical [facility] [address] [place] [phone] Leonel Plascencia MD NO ADDRESS ON FILE CYST OF KIDNEY, ACQUIRED (Primary Dx) Social History Tobacco Use Types Packs/Day Years Used Date Smoking Tobacco: Never Assessed Sex and Gender Information Value Date Recorded Sex Assigned at Not on file 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
--- OUTSIDE RECORDS SUMMARY | 2025-04-17 14:05 | XMS_ITS | Encounter Summary ---
Author Organization [facility] Address [address] [place] [address] Care Team Providers Care Diesel Locomotive Firer/Fireman Name Role Phone Leonel Plascencia MD Primary Care Provider Unavailable Encounter Details Date Type Department Care Team (Late st Contact Info) Description 10/16/2006 Outpatient Historical [facility] E [place] [address] [place] [phone] Esau Pretty MD [address] [place] [phone] Obstructive Sleep Apnea (Primary Dx) Social History Tobacco Use Types Packs/Day Years Used Date Smoking Tobacco: Never Assessed Sex and Gender Information Value Date Recorded Sex Assigned at Not on file 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
--- OUTSIDE RECORDS SUMMARY | 2025-04-17 14:05 | XMS_ITS | Encounter Summary ---
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
--- OUTSIDE RECORDS SUMMARY | 2025-04-17 14:05 | XMS_ITS | Encounter Summary ---
Author Organization [facility] Address [address] [place] [address] Care Team Providers Care Blower Blast Furnace Name Role Phone Leonel Plascencia MD Primary Care Provider Unavailable Encounter Details Date Type Department Care Team (Latest Contact Info) Description 12/02/2001 Outpatient Historical [address] [phone] Joe Bates MD [address] [phone] Congenital renal cyst (Primary Dx) Social History Tobacco Use Types Packs/Day Years Used Date Smoking Tobacco: Never Assessed Sex and Gender Information Value Date Recorded Sex Assigned at Not on file 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
--- OUTSIDE RECORDS SUMMARY | 2025-04-17 14:05 | XMS_ITS | Encounter Summary ---
Author Organization [facility] Address [address] [place] [address] Care Team Providers Care Bone Char Operator Name Role Phone Leonel Plascencia MD Primary Care Provider Unavailable Encounter Details Date Type Department Care Team (Late st Contact Info) Description 10/16/[address] 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
--- OUTSIDE RECORDS SUMMARY | 2025-04-17 14:05 | XMS_ITS | Encounter Summary ---
Author Organization [facility] Address [address] [place] [address] Care Team Providers Care Deck Worker Name Role Phone Leonel Plascencia MD Primary Care Provider Unavailable Encounter Details Date Type Department Care Team (Latest Contact Info) Description 12/17/2001 Outpatient Historical [address] [phone] Joe Bates MD [address] [phone] HEADACHE (Primary Dx); ACUTE BRONCHITIS; ACUTE URI NOS Social History Tobacco Use Types Packs/Day Years Used Date Smoking Tobacco: Never Assessed Sex and Gender Information Value Date Recorded Sex Assigned at Not on file 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
--- OUTSIDE RECORDS SUMMARY | 2025-04-17 14:05 | XMS_ITS | Encounter Summary ---
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
--- OUTSIDE RECORDS SUMMARY | 2025-04-17 14:05 | XMS_ITS | Encounter Summary ---
Author Organization [facility] Address [address] [place] [address] Care Team Providers Care Dietary Internship Name Role Phone Leonel Plascencia MD Primary Care Provider Unavailable Encounter Details Date Type Department Care Team (Latest Contact Info) Description 07/09/2001 Outpatient Historical [facility] Medicine [place] [address] [phone] Joe Bates MD [address] [phone] MELENA, BLOOD IN STOOL (Primary Dx) Social History Tobacco Use Types Packs/Day Years Used Date Smoking Tobacco: Never Assessed Sex and Gender Information Value Date Recorded Sex Assigned at Not on file 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
--- OUTSIDE RECORDS SUMMARY | 2025-04-17 14:05 | XMS_ITS | Encounter Summary ---
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
--- OUTSIDE RECORDS SUMMARY | 2025-04-17 14:05 | XMS_ITS | Encounter Summary ---
Author Organization [facility] Address [address] [place] [address] Care Team Providers Care Fork Lift Technician Name Role Phone Leonel Plascencia MD Primary Care Provider Unavailable Encounter Details Date Type Department Care Team (Latest Contact Info) Description 05/09/1998 Outpatient Historical [facility] Blayne Ennis MD NO ADDRESS ON FILE Sprain and strain of other specified sites of shoulder and upper arm (Primary Dx) Social History Tobacco Use Types Packs/Day Years Used Date Smoking Tobacco: Never Assessed Sex and Gender Information Value Date Recorded Sex Assigned at Not on file 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
--- OUTSIDE RECORDS SUMMARY | 2025-04-17 14:05 | XMS_ITS | Encounter Summary ---
Author Organization [facility] Address [address] [place] [address] Care Team Providers Care Requisition Approver Name Role Phone Leonel Plascencia MD Primary Care Provider Unavailable Encounter Details Date Type Department Care Team (Late st Contact Info) Description 10/16/2006 Outpatient Historical [facility] [address] [place] [address] [place] [phone] Esau Pretty MD [address] [place] [phone] Obstructive Sleep Apnea (Adult) (Pediatric) (Primary Dx) Social History Tobacco Use Types Packs/Day Years Used Date Smoking Tobacco: Never Assessed Sex and Gender Information Value Date Recorded Sex Assigned at Not on file 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
--- OUTSIDE RECORDS SUMMARY | 2025-04-17 14:05 | XMS_ITS | Encounter Summary ---
Author Organization [facility] Address [address] [place] [address] Care Team Providers Care It Support Engineer Name Role Phone Leonel Plascencia MD Primary Care Provider Unavailable Encounter Details Date Type Department Care Team (Latest Contact Info) Description 10/17/2005 Outpatient Historical [facility] [place] [address] [place] [phone] Norberto Spangler MD [address] [place] [address] [address] [place] [phone] Benign Neoplasm of Colon (Primary Dx) Social History Tobacco Use Types Packs/Day Years Used Date Smoking Tobacco: Never Assessed Sex and Gender Information Value Date Recorded Sex Assigned at Not on file 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
--- OUTSIDE RECORDS SUMMARY | 2025-04-17 14:05 | XMS_ITS | Encounter Summary ---
Author Organization [facility] Address [address] [place] [address] Care Team Providers Care Envelope Sealer Name Role Phone Leonel Plascencia MD Primary Care Provider Unavailable Encounter Details Date Type Department Care Team (Latest Contact Info) Description 09/23/2001 Outpatient Historical [facility] [address] [phone] Joe Bates MD [address] [phone] URIN TRACT INFECTION NOS (Primary Dx); URTICARIA NOS Social History Tobacco Use Types Packs/Day Years Used Date Smoking Tobacco: Never Assessed Sex and Gender Information Value Date Recorded Sex Assigned at Not on file 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
--- OUTSIDE RECORDS SUMMARY | 2025-04-17 14:05 | XMS_ITS | Encounter Summary ---
Author Organization [facility] Address [address] [place] [address] Care Team Providers Care Hvac Project Manager Name Role Phone Leonel Plascencia MD Primary Care Provider Unavailable Encounter Details Date Type Department Care Team (Latest Contact Info) Description 08/05/[address] 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
--- OUTSIDE RECORDS SUMMARY | 2025-04-17 14:05 | XMS_ITS | Encounter Summary ---
Author Organization [facility] Address [address] [place] [address] Care Team Providers Care Director Business Systems Name Role Phone Leonel Plascencia MD Primary Care Provider Unavailable Encounter Details Date Type Department Care Team (Latest Contact Info) Description 06/01/2001 Outpatient Historical [facility] Medicine [address] [phone] Yajaira Dillard MD [address] [place] [phone] LUMBAGO (Primary Dx); VACCINE FOR INFLUENZA Social History Tobacco Use Types Packs/Day Years Used Date Smoking Tobacco: Never Assessed Sex and Gender Information Value Date Recorded Sex Assigned at Not on file Legal Sex Male 6: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
--- OUTSIDE RECORDS SUMMARY | 2025-04-17 14:06 | XMS_ITS | Encounter Summary ---
Author Organization [facility] Address [address] [place] [address] Care Team Providers Care Energy Director Name Role Phone Leonel Plascencia MD Primary Care Provider Unavailable Encounter Details Date Type Department Care Team (Latest Contact Info) Description 10/28/2001 Outpatient Historical [facility] [address] [phone] Joe Bates MD [address] [phone] HYPERTENSION NOS (Primary Dx); URIN TRACT INFECTION NOS Social History Tobacco Use Types Packs/Day Years Used Date Smoking Tobacco: Never Assessed Sex and Gender Information Value Date Recorded Sex Assigned at Not on file Legal Sex Male 6:05 AM VISUAL ASSOCIATE Gender Identity Not on file Sexual Orientation Not on file documented as of this encounter Plan of Treatment Not on file documented as of this encounter Visit Diagnoses Diagnosis Unspecified essential hypertension- Primary Urinary tract infection, site not specified documented in this encounter Care Teams Energy Director Relationship Specialty Start Date End Date Leonel Plascencia MD PCP - General 07/22/02 documented as of this encounter
--- OUTSIDE RECORDS SUMMARY | 2025-04-17 14:06 | XMS_ITS | Encounter Summary ---
Author Organization [facility] Address [address] [facility] Attn: Epic Prelude ADT [place] [phone] Care Team Providers Care Signal Engineer Name Role Phone Leonel Plascencia MD Primary Care Provider Unavailable Encounter Details Date Type Department Care Team (Late st Contact Info) Description 11/15/2001 Outpatient Historical Non-Staff, Physician NO ADDRESS ON FILE Social History Tobacco Use Types Packs/Day Years Used Date Smoking Tobacco: Never Assessed Sex and Gender Information Value Date Recorded Sex Assigned at Not on file Legal Sex Male 6:05 AM 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
--- OUTSIDE RECORDS SUMMARY | 2025-04-17 14:06 | XMS_ITS | Encounter Summary ---
Author Organization [facility] Address [address] [facility] Attn: Epic Prelude ADT [place] [phone] Care Team Providers Care Economic Historian Name Role Phone Leonel Plascencia MD Primary Care Provider Unavailable Encounter Details Date Type Department Care Team (Late st Contact Info) Description 10/28/2001 Outpatient Historical Pedro Cohen, ACCREDITATION MANAGER [address] [place], [place] [phone] Social History Tobacco Use Types Packs/Day Years Used Date Smoking Tobacco: Never Assessed Sex and Gender Information Value Date Recorded Sex Assigned at Not on file 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
--- OUTSIDE RECORDS SUMMARY | 2025-04-17 14:06 | XMS_ITS | Encounter Summary ---
Author Organization [facility] Address [address] [place] [address] Care Team Providers Care Advertising Strategist Name Role Phone Leonel Plascencia MD Primary Care Provider Unavailable Encounter Details Date Type Department Care Team (Latest Contact Info) Description 11/17/2001 Outpatient Historical [facility] Medicine [address] [phone] Yajaira Dillard MD [address] [place] [phone] CONTUSION OF HAND(S) (Primary Dx); BACKACHE NOS; CYST KIDNEY DIS, UNSPEC Social History Tobacco Use Types Packs/Day Years Used Date Smoking Tobacco: Never Assessed Sex and Gender Information Value Date Recorded Sex Assigned at Not on file 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
--- OUTSIDE RECORDS SUMMARY | 2025-04-17 14:06 | XMS_ITS | Encounter Summary ---
Author Organization [facility] Address [address] [place] [address] Care Team Providers Care Wrapper And Preserver Name Role Phone Leonel Plascencia MD Primary Care Provider Unavailable Encounter Details Date Type Department Care Team (Latest Contact Info) Description 11/10/2001 Outpatient Historical [facility] [address] [phone] Joe Bates MD [address] [phone] HYPERTENSION NOS (Primary Dx); ARTHROPATHY NOS-UNSPEC; CALCULUS OF KIDNEY Social History Tobacco Use Types Packs/Day Years Used Date Smoking Tobacco: Never Assessed Sex and Gender Information Value Date Recorded Sex Assigned at Not on file 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
--- OUTSIDE RECORDS SUMMARY | 2025-04-17 14:06 | XMS_ITS | Encounter Summary ---
Author Organization [facility] Address [address] [facility] Attn: Epic Prelude ADT [place] [phone] Care Team Providers Care Ranch Hand Livestock Name Role Phone Leonel Plascencia MD Primary Care Provider Unavailable Encounter Details Date Type Department Care Team (Late st Contact Info) Description 10/29/2001 Outpatient Historical Pedro Cohen, BIAS BINDING FOLDER [address] [place], [place] [id number] Social History Tobacco Use Types Packs/Day Years Used Date Smoking Tobacco: Never Assessed Sex and Gender Information Value Date Recorded Sex Assigned at Not on file 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
[2025-04-17 14:20] LABS: Hematocrit 41.1 % (37-53); Hemoglobin 13.50 g/dL (11.27-16.99); Mean Corpuscular HGB Conc 32.8 g/dL (30-55); Mean Corpuscular Hemoglobin 31.9 pg (27-33); Mean Corpuscular Volume 97.2 fl (82-101); Nucleated Red Blood Cells % 0 %; Platelet Count 201 10^3/cmm (157-399); Red Blood Count 4.23 10^6/uL (3.85-5.65); White Blood Count 7.00 10^3/uL (3.29-11.43)
[2025-04-17 14:41] LABS: Alanine Aminotransferase 7 U/L (0-41); Albumin Level 3.7 g/dL (3.5-5.2); Alkaline Phosphatase 83 U/L (40-130); Anion Gap 14.2 (5-19); Aspartate Amino Transferase 12 U/L (0-40); Blood Urea Nitrogen 24 mg/dL (8-23); Calcium 9.5 mg/dL (8.5-10.5); Carbon Dioxide 27 mmol/L (22-29); Chloride 104 mmol/L (98-107); Creatinine Clr Calc Pharmacy 44.4508; Globulin 3.2 g/dL (1.3-4.6); Glucose 154 mg/dL (65-115); Osmolality Calculated 299 mOsm/kg (285-295); Potassium 4.2 mmol/L (3.5-5.1); Sodium 141 mmol/L (136-145); Total Protein 6.9 g/dL (6.6-8.7)
--- NOTE | 2025-04-17 15:03 | W.ED.WEAKNES ---
HPI - Weakness General: Chief complaint: Weakness Stated complaint: WEAKNESS Time Seen by Provider: 04/17/25 13:49 History of Present Illness: 80-year-old male presents emergency room complaining of generally not feeling well. States he has been very weak and dizzy at times. EMS reported he was 84% on room air however here is 92 to 94% on room air. Associated symptoms: Denies chest pain, chills, dysuria or fever(s) Related Data Home Medications ?Medication ?Instructions ?Recorded ?Confirmed cranberry 500 mg capsule 500 mg PO DAILY@07 06/21/20 09/07/23 finasteride 5 mg tablet 5 mg PO DAILY@06/21/20 09/07/23 levetiracetam 1,000 mg tablet 1,000 mg PO BID@,06/21/20 09/07/23 pantoprazole 40 mg tablet,delayed 40 mg PO DAILY@06/21/20 09/07/23 release tamsulosin 0.4 mg capsule 0.4 mg PO DAILY@06/21/20 09/07/23 clopidogrel 75 mg tablet (Plavix) 75 mg PO DAILY 10/01/21 09/07/23 valsartan 160 mg tablet 160 mg PO DAILY 10/01/21 09/07/23 Previous Rx's ?Medication ?Instructions ?Recorded furosemide 20 mg tablet 20 mg PO DAILY@07 PRN Edema #0 tabs 06/22/20 magnesium 250 mg tablet 250 mg PO DAILY #30 tabs 06/22/20 potassium chloride 20 mEq 20 meq PO DAILY #7 tabs 06/22/20 tablet,extended release fluticasone propionate 50 1 spray intranasal BID #18.2 mL 08/12/21 mcg/actuation nasal spray,suspension (Flonase Allergy Relief) cefdinir 300 mg capsule 300 mg PO BID #14 caps 04/17/25 Allergies Allergy/AdvReac Type Severity Reaction Status Date / Time pneumococcal vaccine Allergy Severe Unknown Verified 09/07/23 10:35 Review of Systems Const: Reports: fatigue; Denies: fever(s) or chills Card: Denies: chest pain Resp: Denies: dyspnea GI: Denies: abdominal pain : Denies: dysuria, urinary frequency or urinary urgency Musc: Denies: neck pain or back pain Skin/Breast: Denies: rash PFSH ED PFSH: Medical History Chronic right shoulder pain Troponin level elevated GERD (gastroesophageal reflux disease) BPH (benign prostatic hyperplasia) CAD (coronary artery disease) HTN (hypertension) Asthma Renal cell cancer Surgical History History of rotator cuff surgery Stented coronary artery History of nephrectomy Family History Other No significant family history Social History Smoking and tobacco/nicotine status: never used tobacco/nicotine Quit status (tobacco/nicotine): has quit using Year quit tobacco: 1976 Alcohol intake: never Substance/Drug Use: never Lives independently: Yes Household members: none Housing: Other Details: Brother Johnnie Cormier lives in the same apartment buildings. Marital status: Physical Exam Const: COMMON NORMALS: no acute distress GENERAL APPEARANCE: cooperative and comfortable ORIENTATION/CONSCIOUSNESS: Yes awake, Yes oriented to person, Yes oriented to place and Yes oriented to time HENMT: COMMON NORMALS: normocephalic, atraumatic and hearing grossly normal bilaterally HEAD & SCALP: normocephalic and atraumatic Resp: COMMON NORMALS: normal respiratory effort, No retractions, No use of accessory muscles and clear to auscultation bilaterally AUSCULTATION: clear to auscultation bilaterally Cardio: COMMON NORMALS: regular rate, regular rhythm and No murmurs present (Cardio) RATE: regular rate RHYTHM: regular rhythm GI: COMMON NORMALS: Soft to palpation and No hepatosplenomegaly present AUSCULTATION: Yes normoactive bowel sounds PALPATION: Yes Soft to palpation, No Tenderness to palpation present (GI), No Guarding due to palpation present (GI) and Yes No hepatosplenomegaly present Extremity: COMMON NORMALS: normal to inspection, capillary refill normal, no clubbing, cyanosis or edema, no calf tenderness and no pedal edema Neuro: SENSORIUM/ORIENTATION: Yes oriented to person, Yes oriented to place and Yes oriented to time Skin: COMMON NORMALS: no rashes or lesions noted GENERAL SKIN EXAM: no rashes or lesions noted Course Vital Signs: Vital signs: Vital Signs Temperature 98.2 F 04/17/25 13:47 Pulse Rate 74 04/17/25 13:47 Respiratory Rate 23 H 04/17/25 13:47 Blood Pressure 120/60 04/17/25 13:47 Pulse Oximetry 92 04/17/25 13:47 Oxygen Delivery Me thod Room Air 04/17/25 13:47 MDM - Weakness Medical Decision Making Patient denies any chest pain or abdominal pain he states he generally feels weak. Here his oxygen saturation was normal he has mild tachypnea at times laboratory test unremarkable creatinine mildly elevated but at his generalized baseline. He has a bundle branch block on the EKG which he has intermittently had in the past and he is not having any chest pain at this time. Will discharge him home started him on cefdinir 300 mg twice daily. Medical Records I reviewed the patient's medical records. Lab Data I reviewed the patient's lab results. 04/17/25 14:06 04/17/25 14:06 Radiology Impressions Chest X-Ray 04/17/25 13:49 IMPRESSION: Right lower hemithorax abnormality of unknown chronicity which likely represents atelectasis and/or pneumonitis. Laboratory Results WBC 7.00 10^3/uL (3.29-11.43) 04/17/25 14:06 RBC 4.23 10^6/uL (3.85-5.65) 04/17/25 14:06 Hgb 13.50 g/dL (11.27-16.99) 04/17/25 14:06 Hct 41.1 % (37-53) 04/17/25 14:06 MCV 97.2 fl (82-101) 04/17/25 14:06 MCH 31.9 pg (27-33) 04/17/25 14:06 MCHC 32.8 g/dL (30-55) 04/17/25 14:06 RDW 12.3 % (12.1-15.1) 04/17/25 14:06 Plt Count 201 10^3/cmm (157-399) 04/17/25 14:06 MPV 9.0 fL (7.4-10.4) 04/17/25 14:06 Neut % (Auto) 71.3 % 04/17/25 14:06 Lymph % (Auto) 19.0 % 04/17/25 14:06 Nicholas % (Auto) 7.9 % 04/17/25 14:06 Eos % (Auto) 1.1 % 04/17/25 14:06 Baso % (Auto) 0.6 % 04/17/25 14:06 Neut # (Auto) 4.99 10^3/uL (1.8-7.7) 04/17/25 14:06 Lymph # (Auto) 1.3 10^3/uL (0.8-4.8) 04/17/25 14:06 Nicholas # (Auto) 0.6 10^3/uL (0.2-0.9) 04/17/25 14:06 Eos # (Auto) 0.1 10^3/uL (0.0-0.8) 04/17/25 14:06 Baso # (Auto) 0.0 10^3/uL (0.0-0.1) 04/17/25 14:06 Nucleated RBC % (auto) 0 % 04/17/25 14:06 Nucleated RBCs # 0.0 /100WBC 04/17/25 14:06 Sodium 141 mmol/L (136-145) 04/17/25 14:06 Potassium 4.2 mmol/L (3.5-5.1) 04/17/25 14:06 Chloride 104 mmol/L (98-107) 04/17/25 14:06 Carbon Dioxide 27 mmol/L (22-29) 04/17/25 14:06 Anion Gap 14.2 (5-19) 04/17/25 14:06 BUN 24 mg/dL (8-23) H 04/17/25 14:06 Creatinine 1.5 mg/dL (0.7-1.2) H 04/17/25 14:06 GFR Calculation Not Reportable 04/17/25 14:06 Glucose 154 mg/dL (65-115) H 04/17/25 14:06 Calculated Osmolality 299 mOsm/kg (285-295) H 04/17/25 14:06 Calcium 9.5 mg/dL (8.5-10.5) 04/17/25 14:06 Total Bilirubin 0.3 mg/dL (0.15-1.2) 04/17/25 14:06 AST 12 U/L (0-40) 04/17/25 14:06 ALT 7 U/L (0-41) 04/17/25 14:06 Alkaline Phosphatase 83 U/L (40-130) 04/17/25 14:06 NT-Pro-B Natriuret Pep 97 pg/mL (0-450) 04/17/25 14:06 Total Protein 6.9 g/dL (6.6-8.7) 04/17/25 14:06 Albumin 3.7 g/dL (3.5-5.2) 04/17/25 14:06 Globulin 3.2 g/dL (1.3-4.6) 04/17/25 14:06 Procalcitonin 0.17 ng/mL (0-0.5) 04/17/25 14:06 Urine Color Dark yellow (Yellow) A 04/17/25 15:00 Urine Appearance Cloudy (CLEAR) A 04/17/25 15:00 Urine pH 5.0 (5-7) 04/17/25 15:00 Ur Specific Telferner 1.024 (1.005-1.030) 04/17/25 15:00 Urine Protein 1+ (Negative) A 04/17/25 15:00 Urine Glucose (UA) Negative (Normal) 04/17/25 15:00 Urine Ketones Trace (Negative) 04/17/25 15:00 Urine Blood Negative (Negative) 04/17/25 15:00 Urine Nitrate Negative (Negative) 04/17/25 15:00 Urine Bilirubin Negative (Negative) 04/17/25 15:00 Urine Urobilinogen 1.0 mg/dL (Negative) 04/17/25 15:00 Ur Leukocyte Esterase Trace (Negative) A 04/17/25 15:00 Urine RBC 0-4 /hpf (0-2) H 04/17/25 15:00 Urine WBC 0-4 /hpf (0-5) H 04/17/25 15:00 Ur Squamous Epith Cells 11-20 /hpf (0-5) H 04/17/25 15:00 Amorphous Sediment Not Reportable 04/17/25 15:00 Urine Bacteria Trace /hpf (NONE) 04/17/25 15:00 All radiology interpretation(s) finalized by discharge Discharge Plan Discharge Patient Disposition: Home Clinical Impression: Pneumonia, Weakness Condition: Stable Prescriptions: New cefdinir 300 mg capsule 300 mg PO BID Qty: 14 0RF No Action fluticasone propionate [Flonase Allergy Relief] 50 mcg/actuation spray,suspension 1 spray intranasal BID Qty: 18.2 0RF Rx Instructions: administer into each nostril valsartan 160 mg tablet 160 mg PO DAILY clopidogrel [Plavix] 75 mg tablet 75 mg PO DAILY tamsulosin 0.4 mg capsule 0.4 mg PO DAILY@07 pantoprazole 40 mg tablet,delayed release (DR/EC) 40 mg PO DAILY@07 finasteride 5 mg tablet 5 mg PO DAILY@07 cranberry 500 mg Capsule 500 mg PO DAILY@07 levetiracetam 1,000 mg tablet 1,000 mg PO BID@07,21 furosemide 20 mg tablet 20 mg PO DAILY@07 PRN (Reason: Edema) Qty: 0 0RF potassium chloride 20 mEq tablet extended release 20 meq PO DAILY Qty: 7 0RF magnesium 250 mg tablet 250 mg PO DAILY Qty: 30 0RF Discharge Orders: Discharge ED (Routine); Ordered 04/17/25 Ordered By: Adis Valdes Referrals: Pankaj Vang MD [Primary Care Provider, Family Practice] Discharge Diet: Usual diet Discharge Activity: Increase activity as tolerated Patient Instructions: Opioid Safety, Pain Management, Patient Portal & [place] Instructions Activity Restrictions/Additional Instructions: Thank you for choosing [facility] for your healthcare needs today. It is very important that you follow up as instructed or that you return to the Emergency Department should you have concerns or if your condition changes or worsens in any way. Emergency department visits are focused on emergent conditions, in some cases you may require further evaluation on an outpatient basis. You were seen in the emergency room with complaints of weakness and dizziness. Laboratory tests are unremarkable. Chest x-ray showed possible mild pneumonia. Recommend you start on some oral antibiotics. (Please note that included in your discharge packet is information concerning opioid safety and pain management. This information is given to all patients were discharged from the ER regardless of their discharge diagnosis or the medicines they usually take or are prescribed.) Print Language: Tamazight Coding Level of Care Code ED Community Development Aide for Param Wright
[2025-04-17 15:17] LABS: Glucose Urine UA Negative (Normal); Nitrate Urine Negative (Negative); Specific Gravity, Urine 1.024 (1.005-1.030)
[2025-04-17 15:40] LABS: Add Urine Microscopic? YES; UA Manual Slide Review YES
[2025-04-17 16:08] LABS: NT Pro B Type Natriuretic Pept 97 pg/mL (0-450); Procalcitonin 0.17 ng/mL (0-0.5)
[2025-04-17 17:30] VITALS: PULSE 81; O2SAT 92
== END 2025-04-17 17:30 | disposition home or self-care (01) ==
PROVIDERS: Emergency Provider Family Medicine; PCP Family Medicine
DX: J18.9 Pneumonia, unspecified organism (principal); R53.1 Weakness; Z87.891 Personal history of nicotine dependence; I25.10 Atherosclerotic heart disease of native coronary artery without angina pectoris; I10 Essential (primary) hypertension; Z85.048 Personal history of other malignant neoplasm of rectum, rectosigmoid junction, and anus
CPT/HCPCS: 36415; 71045; 80053; 81001; 83880; 84145; 85025; 93005; 99285